=== PATIENT | male | born 1970 | race Caucasian/White ===

== ENCOUNTER 2021-02-02 10:14 | Observation (INO) | payer OTHER, SELFPAY ==
[2021-02-02] VITALS (9 sets, daily range): BP systolic 118–163; BP diastolic 82–110; PULSE 73–101; RESP 15–19; TEMP 36.5–36.9; O2SAT 92–98; BMI 35.9; BMI 37.3; BMI 37.1; BMI 37.2
--- NOTE | 2021-02-02 10:32 | ED.RN ---
PER DR. ALBA PT IS NOT A STROKE ALERT.
--- NOTE | 2021-02-02 10:35 | CT_ITS ---
STUDY: CT BRAIN WITHOUT CONTRAST REASON FOR EXAM: Male, 50 years old. Headache RADIATION DOSAGE (If Supplied By Facility): CTDIvol = ( 44.99 ) mGy, DLP = ( 846.73 ) mGycm TECHNIQUE: Transaxial CT imaging of the brain was performed without administration of intravenous contrast material. Individualized dose optimization techniques were used for this CT. COMPARISON: No relevant priors. FINDINGS: Normal soft tissue structures. Normal calvarium. Normal size ventricles and extra-axial spaces for the patient''s age. Normal white matter tracts of the cerebral hemispheres. Normal basal ganglia and thalami. Normal brainstem. Normal cerebellum. There is no intracranial hemorrhage. There are no findings of an acute ischemic infarction. Normal visualized paranasal sinuses. CT/Brain/Head without Contrast IMPRESSION: Normal unenhanced CT scan of the brain. Electronically Signed: Seb Staton MD at 12:02 EST Tel , Service support ,
--- NOTE | 2021-02-02 10:36 | EKG12_ITS ---
Test Reason : NEURO S\SX Blood Pressure : / mmHG Vent. Rate : 079 BPM Atrial Rate : 079 BPM P-R Int : 172 ms QRS Dur : 120 ms QT Int : 398 ms P-R-T Axes : 052 -30 010 degrees QTc Int : 456 ms Normal sinus rhythm Left axis deviation Right bundle branch block Abnormal ECG Confirmed by EARNESTINE GRAVES, ABILIO ([id number]), assistant editor ZAHIDA GALLO ([id number]) on 02/05/2021 10:35:36 A M Referred By: PARTH Confirmed By:CELIA COLBY MD
--- NOTE | 2021-02-02 10:38 | ED.DCSUM_ITS ---
- ER Visit Summary Date of Service: 02/02/21 Chief Complaint: Paresthesias and visual changes History of Present Illness: The patient is a 50 M who presents with paresthesias and visual changes that began yesterday after work. Patient states he had an area in his vision that look like after you look in a bright light for a long time then look away. Patient states this lasted several hours. Patient states she had an episode last night where he could not remember his child's name. Patient states he was having difficulty remembering other people's names as well. Patient patient states that today he was having some paresthesias in both lower extremities. Currently, the patient denies any visual changes. Patient states he was having some unsteadiness with ambulation because of the paresthesias in his legs. Patient denies any weakness. Patient does admit to a headache. Patient denies any nausea or vomiting. Physical Examination: Vital signs are stable except for an elevated blood pressure of 163/110. Patient is afebrile. Patient is in no acute distress. Oral mucosa is pink and moist. Neck is supple. Trachea is midline. There is no JVD noted. Heart was regular rate and rhythm. Lungs are clear and equal bilaterally. Abdomen is soft. Bowel sounds are normal. There is no tenderness. There is no rebound or guarding noted. Skin is warm dry. Cranial nerves II through XII are intact. There are no focal motor or sensory deficits noted. Extremities are intact. There is no calf tenderness or edema. Test Results: EKG was obtained. On my interpretation, there is normal sinus rhythm with a rate of 79. There is a right bundle branch block pattern noted. There are no acute ST or T wave changes. This was unchanged compared to previous EKG dated 09/23/2013. CT scan of the brain was obtained. There is no acute intracranial abnormality. This was interpreted by the radiologist and reviewed by myself. CBC, comprehensive metabolic profile, PT with INR, and PTT were obtained were all within normal limits. Troponin was normal. Emergency Department Course and Treatment: Since his symptoms started yesterday afternoon and his NIH score is 0 at this time, stroke team was not activated. TPA is not indicated. Patient was advised of her results. Case was discussed with the hospitalist. He will admit the patient for observation. Patient understood and was agreeable with the plan. All questions were answered. Disposition: Admit to hospital Impression: 1. TIA This note was generated with [employer] dictation software. It may contain incorrect words, spelling, and punctuation that were not noted in review of the chart prior to signing ED Disposition - Plan for ED Patient: Disposition: Acute Care Hospital [facility] Diagnosis: TIA (transient ischemic attack) Referrals: Rodrigo Cerad MD [Primary Care Provider] -
[2021-02-02 10:40] LABS: Bedside Glucose 105 mg/dL (70-110)
[2021-02-02 10:57] LABS: Absolute Lymphocyte Count 2.74 X10^3/uL (0.83-4.51); Basophil# 0.04 X10^3/uL; Basophil% 0.4 % (0-1); Eosinophil# 0.34 X10^3/uL; Eosinophils% 3.4 % (0-5); Hematocrit 46.7 % (40-54); Hemoglobin 16.2 g/dL (13.0-16.5); Lymphocyte # 2.74 X10^3/ul (4.0); Lymphocyte % 27.7 % (19-41); Mean Corp Hgb Conc 34.7 g/dL (32-36); Mean Corpuscular Hgb 29.3 pg (27.0-32.0); Mean Corpuscular Volume 84.4 fL (80-94); Mean Platelet Vol. 9.7 fl (6.2-12.0); Monocyte# 0.76 X10^3/uL; Monocyte% 7.7 % (0-10); NRBC Flagged by Analyzer 0 % (0-5); Neutrophil # 5.97 X10^3/uL (2.7-7.7); Neutrophil % 60.3 % (47-70); Platelet Count 220 K/mm3 (150-450); RBC Distribution Width CV 12.6 % (11.6-14.6); RBC Distribution Width SD 37.9 fl (35.1-43.9); Red Blood Count 5.53 M/mm3 (4.6-6.2); White Blood Count 9.9 K/mm3 (4.4-11.0)
[2021-02-02 11:00] LABS: Prothrombin Time (Protime)PT. 12.2 SECONDS (11.7-14.9)
[2021-02-02 11:01] LABS: Partial Thromboplast Time 24.3 Seconds (24.1-36.2)
[2021-02-02 11:09] LABS: AST(SGOT) 35 U/L (15-37); Alanine Aminotransfer ALT/SGPT 94 U/L (16-61); Albumin, Serum 3.9 g/dL (3.2-5.0); Alkaline Phosphatase 98 U/L (45-117); Anion Gap 7 (5-15); BUN 15 mg/dL (7-18); Calcium,Total 9.5 mg/dL (8.5-10.1); Chloride 102 mmol/L (98-107); EST Glomerular Filtration Rate 84 mL/min (>60); Est Glom Filt Rate - Afr Amer 102 mL/min (>60); Estimated Creatinine Clearance 92.26 ml/min; Globulin 3.9 g/dL (2.2-4.2); Glucose 100 mg/dL (74-106); Potassium 3.4 mmol/L (3.5-5.1); Protein, Total 7.8 g/dL (6.4-8.2); Sodium Level 140 mmol/L (136-145)
--- NOTE | 2021-02-02 12:38 | HP.PCM_ITS ---
Problem List (1) Essential (primary) hypertension Status: Acute (2) Dyslipidemia Status: Chronic (3) Asthma Status: Chronic Qualifiers: Asthma severity: mild Asthma persistence: intermittent (4) Allergic rhinitis Status: Chronic Qualifiers: Allergic rhinitis seasonality: unspecified (5) BMI 37.0-37.9, adult Status: Chronic History of Present Illness Date of Admission: 02/02/21 Chief Complaint: Visual disturbance The patient is a 50 year old M with past medical history single for dyslipidemia, essential hypertension who presented with visual disturbance. Patient symptoms started a day prior to coming in. Patient was at work when he noticed increasing blurry vision. He therefore decided to go home as a result. On his way home this visual disturbance also did persist. When he arrived at home he could not remember words. He had difficulty recalling the names of her daughters. He also did complain of numbness involving the left side of the face. Patient symptoms however did improve prior to him going to bed. He woke up on the morning of his presentation with recurrence of his numbness involving his face hence the decision to present to the emergency department. In the ED initial imaging studies obtained was negative acute CVA admitted to a monitored bed for subsequent evaluation and management. Past Medical History Past Medical History (Chronic Problems): Chronic Problems Dyslipidemia (Chronic) Asthma (Chronic) Allergic rhinitis (Chronic) BMI 37.0-37.9, adult (Chronic) Allergies niacin Allergy (Verified 09/23/13 09:08) Rash Home Medications: Ambulatory Orders Medication Instructions Recorded Albuterol Inhaler [Ventolin Hfa] 2 puff INHALATION Q4H PRN PRN 09/23/13 Azelastine HCl [Astelin] 2 spray NASAL BID 09/23/13 Budesonide Nasal [Rhinocort Aqua] 2 spray NASAL DAILY PRN PRN 09/23/13 Cetirizine HCl [Zyrtec] 10 mg PO DAILY PRN PRN 09/23/13 Fluticasone/Salmeterol [Advair 1 puff INHALATION BID 09/23/13 250/50 Mcg Diskus] Lorazepam [Ativan] 1 mg PO DAILY PRN PRN 09/23/13 Montelukast [Singulair] 10 mg PO DAILY 09/23/13 Simvastatin [Zocor] 10 mg PO QHS 09/23/13 Valsartan/Hydrochlorothiazide 1 tablet PO DAILY 09/23/13 [Diovan Hct 80-12.5 MG Tablet] Smoking Status: Never smoker - *Family History Paternal History Items: Cancer - from metastatic cancer Review of Systems Constitutional: Denies: Anorexia, Chills, Fever, Night Sweats, Weight Change HEENT: Denies: Head Aches, Sinus Congestion, Sinus Drainage Cardiovascular: Denies: Chest Pain, Orthopnea, Palpitations, Paroxysmal Noc. Dyspnea Respiratory: Denies: Cough, Shortness of breath at rest, Shortness of breath upon exertion, Sputum production Gastrointestinal: Denies: Abdominal Pain, Hematemesis, Hematochezia, Nausea, Melena, Vomiting Genitourinary: Denies: Dysuria, Frequency, Hematuria, Urgency Musculoskeletal: Denies: Joint Pain, Joint Tenderness Skin: Denies: Rash Neurological: Reports: Blurred vision, Numbness, Tingling Psychiatric: Denies: Homicidal Ideations, Suicidal Ideations Hematologic/ Lymphatic: Denies: Easy Bruising, Easy Bleeding VTE Information - Inpt Only VTE Present on Admission: No VTE Mechan Device Prophylaxis: None VTE Pharm Prophylaxis ordered?: Yes Patient Problems: Active and Suspected Problems TIA (transient ischemic attack) (Acute) Objective: GENERAL: cooperative HEENT: Atraumatic; EYES; Anicteric, Normal Conjunctiva NECK; supple, normal thyroid, RESPIRATORY: Diminished to auscultation CARDIOVASCULAR: Regular S1 S2, GI: soft, normoactive bowel sounds, : No Renal angle tenderness; EXTREMITIES: No edema, no clubbing, MUSCULOSKELETAL: no muscle waisting NEURO: Awake; no lateralizing signs. SKIN: No Rash PSYCH; Flat affect - Physical Exam Vitals/I&O's: Vital Signs Temp Pulse Resp BP Pulse Ox 97.9 F 88 15 153/102 H 95 02/02/21 10:16 02/02/21 10:28 02/02/21 10:28 02/02/21 10:28 02/02/21 10:28 Oxygen Delivery Method Room Air Weight: 118.2 kg Body Mass Index (BMI) 37.3 Finger Stick Blood Glucose 105 Laboratory Results 02/02/21 10:26: POC Glucose 105 02/02/21 10:40: WBC 9.9, RBC 5.53, Hgb 16.2, Hct 46.7, MCV 84.4, MCH 29.3, MCHC 34.7, RDW Std Deviation 37.9, RDW Coeff of Olimpia 12.6, Plt Count 220, MPV 9.7, Immature Gran % (Auto) 0.500, Neut % (Auto) 60.3, Lymph % (Auto) 27.7, [place] % (Auto) 7.7, Eos % (Auto) 3.4, Baso % (Auto) 0.4, Absolute Neuts (auto) 6.0, Absolute Lymphs (auto) 2.74, Nucleated RBC % 0 02/02/21 10:40: PT 12.2, INR 1.0, APTT 24.3 02/02/21 10:40: Sodium 140, Potassium 3.4 L, Chloride 102, Carbon Dioxide 31.0, Anion Gap 7, BUN 15, Creatinine 1.00, Estim Creat Clear Calc 92.26, Est GFR (MDRD) Af Amer 102, Est GFR (MDRD) Non-Af 84, BUN/Creatinine Ratio 15.0, Glucose 100, Calcium 9.5, Total Bilirubin 0.50, AST 35, ALT 94 H, Alkaline Phosphatase 98, Troponin I < 0.015, Total Protein 7.8, Albumin 3.9, Globulin 3.9, Albumin/Globulin Ratio 1.0 Assessment/Plan All Active Problems TIA (transient ischemic attack) (Acute) Essential (primary) hypertension (Acute) Patient is a 50-year-old gentleman presented with visual disturbance as well as difficulty with speech and facial paresthesias 1. Transient ischemic attack ?Patient presented with nonspecific multiple complaints including transient memory loss, difficulty with speech and aphasia paresthesias as well as blurry vision. Admitted to a monitored bed. Currently undergoing evaluation with every 4 neurochecks. As part of patient's evaluation ordered CT of the neck MRI of the head and neck and a 2D echo. Patient started on antiplatelet therapy with aspirin patient already on statin therapy did continue 2. Hypertension - Blood pressure controlled, home medications continued with dose adjustment as needed 3. Dyslipidemia -Patient is on statin therapy, continued at home dose 4. Mild intermittent asthma ?Patient is on Advair as well as albuterol as needed did continue 5. Allergic rhinitis ?Patient is on Singulair and Astelin nasal spray did continue 6. Obesity with BMI of 37.4 ?Weight loss advised 7. DVT prophylaxis ?Lovenox OBSV E&M: [id number] Initial observation care L3
--- NOTE | 2021-02-02 14:34 | ECHOCS_ITS ---
Reason For Study: TIA/CVA Procedure This was a 2D Doppler, Color Flow transthoracic echocardiogram. The study was technically difficult. Contrast injection was performed. Exam performed portable in patient room. Left Ventricle Normal LV size. The estimated ejection fraction is 65 %. No evidence for diastolic dysfunction. No regional wall motion abnormalities noted. Right Ventricle Normal RV size. Normal systolic function. Atria The left atrium is mildly enlarged. Normal right atrium. No doppler evidence for ASD. Mitral Valve There is no mitral valve stenosis. No mitral valve insufficiency. Tricuspid Valve There is no tricuspid stenosis. Trivial tricuspid valve insufficiency. Unable to estimate RV systolic pressure due to insufficient tricuspid regurgitant envelope. Aortic Valve Trisinus/trileaflet aortic valve. There is no aortic stenosis. No aortic valve insufficiency. Pulmonic Valve There is no pulmonic valvular stenosis. No pulmonic valve insufficiency. Great Vessels Normal aortic root. Pericardium/Pleural No pericardial effusion. Medication Diluted definity 4ml given slow IV push to enhance endocardial definition. No bubble study performed- MRI negative for stroke. MMode/2D Measurements & Calculations LVIDd: 4.2 cm IVSd: 1.1 cm Ao root diam: 3.6 cm LVIDs: 2.6 cm LVPWd: 1.2 cm RVDd: 4.1 cm FS: 37.8 % LAV(MOD-bp): 40.3 ml LVAd ap4: 35.3 cm2 SV(MOD-sp4): 87.5 ml LAV(MOD-bp) Indexed: 17.3 ml/m2 EDV(MOD-sp4): 117.4 ml LAV(MOD-sp2): 35.7 ml EDV(sp4-el): 120.6 ml LAV(MOD-sp4): 44.1 ml LVAs ap4: 16.2 cm2 ESV(MOD-sp4): 29.9 ml ESV(sp4-el): 30.5 ml EF(MOD-sp4): 74.6 % EF(sp4-el): 74.7 % SV(sp4-el): 90.0 ml LA A4 area: 17.7 cm2 LA dimension(2D): 5.2 cm RA A4 area: 13.4 cm2 Time Measurements MV dec time: 0.18 sec Doppler Measurements & Calculations MV E max juanito: 89.4 cm/sec Lat Peak E' Juanito: 10.1 cm/sec Med Peak E' Juanito: 6.8 cm/sec MV A max juanito: 76.4 cm/sec E/E' lat: 8.9 E/E' med: 13.2 MV E/A: 1.2 Ao V2 max: 142.9 cm/sec LV V1 max: 112.4 cm/sec TR max juanito: 226.7 cm/sec Ao max P.2 mmHg LV V1 max P.1 mmHg TR max P.6 mmHg Interpretation Summary The estimated ejection fraction is 65 %. No evidence for diastolic dysfunction. The left atrium is mildly enlarged. Contrast injection was performed. Ordering Physician: Ken Ibarra Referring Physician: Rodrigo Cerda M.D. Performed By: Laura Goss RDCS, RVT
--- NOTE | 2021-02-02 14:34 | CT_ITS ---
We are attempting to reach an attending provider to discuss findings. An addendum with communication details will be sent when the communication is complete. STUDY: CTA HEAD AND NECK WITH CONTRAST REASON FOR EXAM: Male, 50 years old. Neuro deficit, acute, stroke suspected RADIATION DOSAGE (If Supplied By Facility): CTDIvol = ( 18.56 ) mGy, DLP = ( 783.33 ) mGycm TECHNIQUE: CT angiography was performed with a multi-detector CT scanner. Data acquisition was obtained from the skull base through the vertex following intravenous administration of IV 100mL [id number]-[id number]. MIP images were reconstructed from the axial data set. Post-processing of the angiographic images was performed, with multiplanar reformation and 3D reconstruction. Individualized dose optimization techniques were used for this CT. COMPARISON: No relevant priors. FINDINGS: Normal bilateral petrous carotid arteries. Normal right cavernous carotid artery with a normal supraclinoid bifurcation. Normal left cavernous carotid artery with a normal supraclinoid bifurcation. Normal right A1 segments of the anterior cerebral artery. Normal left A1 segments of the anterior cerebral artery. Normal intact anterior communicating artery (ACOM). Normal bilateral A2 segments of the anterior cerebral arteries. Normal right M1 and M2 segments of the middle cerebral arteries, with a normal M1 bifurcation. Normal left M1 and M2 segments of the middle cerebral arteries, with a normal M1 bifurcation. There is a persistent origin of the right posterior cerebral artery with absence of the posterior communicating artery (PCOM). Normal left posterior communicating artery (PCOM). Normal bilateral vertebral arteries. Normal basilar artery with a normal basilar bifurcation. The visualized bilateral superior cerebellar (SCA) arteries are normal. Normal bilateral P1, P2 and visualized P3 segments of the posterior cerebral arteries. There is no demonstrated aneurysm of the hoh of [place]. There is no demonstrated abnormality of the visualized brain. AORTIC ARCH: Normal visualized aortic arch. Normal origins of the brachiocephalic, left common carotid, and left subclavian arteries. RIGHT CAROTID ARTERIES: Normal right common carotid artery (CCA). Normal right common carotid bulb. Normal origin of the right internal carotid (ICA) artery without a hemodynamically significant stenosis. Normal visualized cervical portion of the right internal carotid artery. Normal origin of the right external carotid artery (ECA). LEFT CAROTID ARTERIES: Normal left common carotid artery (CCA). Normal left common carotid bulb. Normal origin of the left internal carotid (ICA) artery without a hemodynamically significant stenosis. Normal visualized cervical portion of the left internal carotid artery. Normal origin of the left external carotid artery (ECA). VERTEBRAL ARTERIES: Normal bilateral vertebral arteries. CT/STROKE CTA Head AND Neck W/Con IMPRESSION: Normal CTA Head and neck with contrast. Electronically Signed: Seb Staton MD at 15:34 EST Tel , Service support ,
--- NOTE | 2021-02-02 14:34 | MRI_ITS ---
STUDY: MRI BRAIN WITHOUT CONTRAST REASON FOR EXAM: Male, 50 years old. cva TECHNIQUE: Standardized multiplanar fat and water weighted pulse sequences were obtained. COMPARISON: None. FINDINGS: Normal size of the ventricles and extra-axial spaces for the patient''s age. Normal white matter tracts of the supratentorial brain. Normal bilateral basal ganglia. Normal thalami. There is no extra-axial fluid accumulation. Normal flow voids within the major intracranial circulation suggesting patency by spin echo criteria. Normal sella turcica, pituitary gland, infundibular stalk, optic chiasm and hypothalamus. Normal tectal plate and pineal gland. Normal midbrain, ember and medulla. Normal cerebellum. Normal basal cisterns. Normal bilateral temporal bones. Normal bilateral internal auditory canals. No demonstrated orbital abnormality, within the constraints of a routine brain study. Normal visualized paranasal sinuses. Normal calvarium and skull base. Normal visualized soft tissue structures. Normal visualized upper cervical spine. MRI/Brain without Contrast IMPRESSION: Normal unenhanced MRI of the brain. Electronically Signed: Seb Staton MD at 16:07 EST Tel , Service support ,
[2021-02-02 15:31] LABS: AST(SGOT) 40 U/L (15-37); Alanine Aminotransfer ALT/SGPT 96 U/L (16-61); Albumin, Serum 3.8 g/dL (3.2-5.0); Alkaline Phosphatase 94 U/L (45-117); Bilirubin, Direct 0.11 mg/dL (0.00-0.30); Globulin 3.7 g/dL (2.2-4.2); Protein, Total 7.5 g/dL (6.4-8.2); Thyroid Stim Hormone (TSH) 1.71 uIU/mL (0.358-3.74)
[2021-02-02 17:08] LABS: Amphetamine Urine VISTA NEGATIVE (<1000 ng/mL); Barbiturate Urine VISTA NEGATIVE (< 200 ng/mL); Benzodiazepine Urine VISTA NEGATIVE (< 200 ng/mL); Cocaine Urine VISTA NEGATIVE (< 300 ng/mL); Ecstacy Urine VISTA NEGATIVE (< 500 ng/mL); Methadone Urine VISTA NEGATIVE (< 300 ng/mL); PCP Urine VISTA NEGATIVE (< 25 ng/mL); THC Urine VISTA NEGATIVE (< 50 ng/mL); Vista UDS pH Range 5
[2021-02-02] MEDS: Budesonide Respules 0.5 MG/2 ML AMPUL.NEB. INHALATION (20:06)
[2021-02-02] MEDS: Albuterol 2.5 MG/3 ML VIAL.NEB. INHALATION (20:06)
[2021-02-02] MEDS: Azelastine HCl NASAL.SRY 2 SPRAY NASAL (20:35)
[2021-02-02] MEDS: Atorvastatin Calcium 10 MG Tablet 5 MG PO (20:36)
[2021-02-02] MEDS: Losartan Potassium 50 MG Tablet PO (20:43)
[2021-02-03] VITALS (8 sets, daily range): BP systolic 110–155; BP diastolic 71–82; PULSE 60–89; RESP 16; TEMP 36.2–37.1; O2SAT 94–99
[2021-02-03 07:22] LABS: Absolute Lymphocyte Count 2.94 X10^3/uL (0.83-4.51); Absolute Neutrophil Count 6.2 X10^3/uL (2.0-7.7); Basophil# 0.04 X10^3/uL; Basophil% 0.4 % (0-1); Eosinophil# 0.34 X10^3/uL; Eosinophils% 3.3 % (0-5); Hematocrit 45.6 % (40-54); Lymphocyte # 2.94 X10^3/ul (4.0); Lymphocyte % 28.2 % (19-41); Mean Corp Hgb Conc 32.9 g/dL (32-36); Mean Corpuscular Hgb 28.5 pg (27.0-32.0); Mean Corpuscular Volume 86.5 fL (80-94); Mean Platelet Vol. 9.8 fl (6.2-12.0); Monocyte# 0.85 X10^3/uL; Monocyte% 8.1 % (0-10); NRBC Flagged by Analyzer 0 % (0-5); Neutrophil # 6.22 X10^3/uL (2.7-7.7); Neutrophil % 59.6 % (47-70); Platelet Count 241 K/mm3 (150-450); RBC Distribution Width CV 12.5 % (11.6-14.6); RBC Distribution Width SD 39.2 fl (35.1-43.9); Red Blood Count 5.27 M/mm3 (4.6-6.2); White Blood Count 10.4 K/mm3 (4.4-11.0)
[2021-02-03] MEDS: Albuterol 2.5 MG/3 ML VIAL.NEB. INHALATION (07:29)
[2021-02-03] MEDS: Budesonide Respules 0.5 MG/2 ML AMPUL.NEB. INHALATION (07:29)
[2021-02-03 07:44] LABS: Anion Gap 6 (5-15); BUN 14 mg/dL (7-18); BUN/Creat Ratio 13.9 RATIO (10-20); Calcium,Total 9.1 mg/dL (8.5-10.1); Chloride 102 mmol/L (98-107); Cholesterol 181 mg/dL (200); Creatinine, Serum 1.01 mg/dL (0.70-1.30); EST Glomerular Filtration Rate 83 mL/min (>60); Est Glom Filt Rate - Afr Amer 101 mL/min (>60); Estimated Creatinine Clearance 91.35 ml/min; Glucose 107 mg/dL (74-106); High Density Lipoprotein 30 mg/dL; Magnesium 2.2 mg/dL (1.6-2.6); Potassium 3.1 mmol/L (3.5-5.1); Sodium Level 138 mmol/L (136-145); Triglycerides 269 mg/dL; Very Low Density Lipoprotein 54 mg/dL (5-40)
[2021-02-03] MEDS: Aspirin 81 MG TAB.CHEW PO (08:56)
[2021-02-03] MEDS: Losartan Potassium 50 MG Tablet PO (08:56)
[2021-02-03] MEDS: hydroCHLOROthiazide 25 MG Tablet PO (08:56)
[2021-02-03] MEDS: Montelukast 10 MG Tablet PO (08:57)
[2021-02-03] MEDS: Potassium Chloride Oral Tablet 20 MEQ 40 MEQ PO (10:34)
--- NOTE | 2021-02-03 11:03 | CASEMGMT ---
As per RN pt was negative for stroke, so PHQ-9 not completed. DARÍO Hinkle
--- NOTE | 2021-02-03 11:11 | PCM.DC ---
- Discharge Diagnoses Current Active Problems: Current Active and Chronic Problems TIA (transient ischemic attack) (Acute) Essential (primary) hypertension (Acute) Dyslipidemia (Chronic) Asthma (Chronic) Allergic rhinitis (Chronic) BMI 37.0-37.9, adult (Chronic) You will use the following diet at home:: No restrictions Discharge Activity: Return to Normal Activity Allergies/Adverse Reactions: Allergies mold Allergy (Verified 02/02/21 14:37) upper resp. symptoms niacin Adverse Reaction (Verified 02/02/21 14:37) flushing sodium penothol Adverse Reaction (Uncoded 02/02/21 14:37) Upset Stomach Medications to take at Discharge Albuterol Inhaler [Ventolin Hfa] 2 puff INHALATION Q4H PRN PRN 09/23/13 Azelastine HCl [Astelin] 2 spray NASAL BID 09/23/13 Fluticasone/Salmeterol [Advair 250/50 Mcg Diskus] 1 puff INHALATION BID 09/23/13 B-Complex with Vitamin C [Super B with Vit C] 1 ea PO DAILY 02/02/21 Cetirizine HCl 10 mg PO DAILY 02/02/21 Losartan/Hydrochlorothiazide [Losartan-Hctz 50-12.5 mg Tab] 1 tab PO BID 02/02/21 Rhinocort Aqua 2 spray NASAL DAILY PRN PRN 02/02/21 Sertraline HCl 50 mg PO DAILY 02/02/21 Simvastatin 20 mg PO DAILY 02/02/21 Turmeric/Turmeric Root Extract [Turmeric 500 mg Capsule] 1 cap PO DAILY 02/02/21 Potassium Chloride Oral Tablet [K-Dur] 20 meq PO BIDCM #14 tab 02/03/21 The following prescriptions were given: Potassium Chloride Oral Tablet [K-Dur] 20 meq PO BIDCM #14 tab Transmission Status: Received by [facility]/pharmacy #[id number] Primary Care Physician: Rodrigo Cerda MD [Primary Care Provider] - Please follow up with your Primary Care Physician in: in 1-2 weeks Test Results: Test results from this visit will be discussed in further detail at your follow-up appointment, if applicable. Proposed Discharge Date: 02/03/21
--- NOTE | 2021-02-03 14:50 | DS.PCM_ITS ---
Discharge Date and Diagnosis - Problem List Patient Problems: Active and Suspected Problems TIA (transient ischemic attack) (Acute) Essential (primary) hypertension (Acute) Date of Admission: 02/02/21 Date of Discharge: 02/03/21 - Primary Discharge Diagnosis Acute Problems: Active Problems TIA (transient ischemic attack) (Acute) Essential (primary) hypertension (Acute) - Secondary Discharge Diagnosis Chronic Problems: Chronic Problems Dyslipidemia (Chronic) Asthma (Chronic) Allergic rhinitis (Chronic) BMI 37.0-37.9, adult (Chronic) Hospital Course and Treatment Imaging Results: Clinical Impression(s) from Imaging Studies Brain CT 02/02/21 10:35 IMPRESSION: Normal unenhanced CT scan of the brain. Brain MRI 02/02/21 14:34 IMPRESSION: Normal unenhanced MRI of the brain. Head/Neck CTA 02/02/21 14:34 IMPRESSION: Normal CTA Head and neck with contrast. 2D echo The estimated ejection fraction is 65 %. No evidence for diastolic dysfunction. The left atrium is mildly enlarged. Contrast injection was performed. Summary of Care Provided: Patient is a 50-year-old gentleman presented with visual disturbance as well as difficulty with speech and facial paresthesias 1. Transient ischemic attack ?Patient presented with nonspecific multiple complaints including transient memory loss, difficulty with speech and aphasia paresthesias as well as blurry vision. Admitted to a monitored bed. Currently undergoing evaluation with every 4 neurochecks. As part of patient's evaluation ordered CT of the neck MRI of the head and neck and a 2D echo. Patient started on antiplatelet therapy with aspirin patient already on statin therapy did continue -Patient had no recurrence of his symptoms. His evaluation including MRI CTA as well as 2D echo came back relatively unremarkable 2. Hypertension - Blood pressure controlled, home medications continued with dose adjustment as needed 3. Dyslipidemia -Patient is on statin therapy, continued at home dose 4. Mild intermittent asthma ?Patient is on Advair as well as albuterol as needed did continue 5. Allergic rhinitis ?Patient is on Singulair and Astelin nasal spray did continue 6. Obesity with BMI of 37.4 ?Weight loss advised 7. DVT prophylaxis ?Lovenox 8. Hypokalemia -corrected per protocol prescription written on discharge Patient Problems: Active and Suspected Problems TIA (transient ischemic attack) (Acute) Essential (primary) hypertension (Acute) - Physical Exam Vitals/I&O's: Vital Signs Temp Pulse Resp BP Pulse Ox 97.1 F L 89 16 110/71 96 02/03/21 10:00 02/03/21 10:00 02/03/21 10:00 02/03/21 10:00 02/03/21 10:00 Oxygen Delivery Method Room Air Weight: 117.48 kg Body Mass Index (BMI) 37.1 Finger Stick Blood Glucose 105 Intake and Output for Last 24 Hours 02/01/21 02/02/21 02/03/21 23:59 23:59 23:59 Intake Total 1000 / 1400 1300 / 1300 Balance 1000 / 1400 1300 / 1300 General: Alert HEENT: Atraumatic Cardiovascular: Regular rate, Regular Rhythm Neurological: Neuro grossly intact Laboratory Results 02/02/21 14:55: Total Bilirubin 0.40, Direct Bilirubin 0.11, AST 40 H, ALT 96 H, Alkaline Phosphatase 94, Troponin I < 0.015, Total Protein 7.5, Albumin 3.8, Globulin 3.7, TSH 1.71 02/02/21 14:55: Ethyl Alcohol 5.0 02/02/21 16:30: Urine Opiates Screen NEGATIVE, Urine Methadone Screen NEGATIVE, Ur Barbiturates Screen NEGATIVE, Ur Phencyclidine Scrn NEGATIVE, Ur Amphetamines Screen NEGATIVE, U Methamphetamin-MDMA NEGATIVE, U Benzodiazepines Scrn NEGATIVE, Urine Cocaine Screen NEGATIVE, U Cannabinoids Screen NEGATIVE, Ur Drug Screen Comment 02/02/21 17:54: Troponin I < 0.015 02/02/21 21:05: Troponin I < 0.015 02/03/21 06:38: WBC 10.4, RBC 5.27, Hgb 15.0, Hct 45.6, MCV 86.5, MCH 28.5, MCHC 32.9 D, RDW Std Deviation 39.2, RDW Coeff of Olimpia 12.5, Plt Count 241, MPV 9.8, Immature Gran % (Auto) 0.400, Neut % (Auto) 59.6, Lymph % (Auto) 28.2, [place] % (Auto) 8.1, Eos % (Auto) 3.3, Baso % (Auto) 0.4, Absolute Neuts (auto) 6.2, Absolute Lymphs (auto) 2.94, Nucleated RBC % 0 02/03/21 06:38: Sodium 138, Potassium 3.1 L, Chloride 102, Carbon Dioxide 30.0, Anion Gap 6, BUN 14, Creatinine 1.01, Estim Creat Clear Calc 91.35, Est GFR (MDRD) Af Amer 101, Est GFR (MDRD) Non-Af 83, BUN/Creatinine Ratio 13.9, Glucose 107 H, Calcium 9.1, Magnesium 2.2, Triglycerides 269 H, Cholesterol 181, LDL Cholesterol 97, VLDL Cholesterol 54 H, HDL Cholesterol 30 L Current Medications Acetaminophen (Acetaminophen 325 Mg Tablet) 650 mg PO Q6H PRN PRN PRN Reason: Pain Score 1-10/Temp > 100.7 F Al Hydroxide/Mg Hydroxide (Mag Hydrox/Al Hydrox/Simeth 30 Ml Udc) 30 ml PO Q6H PRN PRN PRN Reason: Gastric Burning Albuterol Sulfate (Albuterol 2.5 Mg/3 Ml Vial.Neb.) 2.5 mg INHALATION Q2H PRN PRN PRN Reason: SOB/Wheezing Albuterol Sulfate (Albuterol 2.5 Mg/3 Ml Vial.Neb.) 2.5 mg INHALATION Q6HWA.RT ON LICENSE OF [facility] Last Admin: 02/03/21 07:29 Dose: 2.5 mg Documented by: Aspirin (Aspirin 81 Mg Tab.Chew) 81 mg PO DAILY@0800 ON LICENSE OF [facility] Last Admin: 02/03/21 08:56 Dose: 81 mg Documented by: Atorvastatin Calcium (Atorvastatin Calcium 10 Mg Tablet) 5 mg PO QHS ON LICENSE OF [facility] Last Admin: 02/02/21 20:36 Dose: 5 mg Documented by: Azelastine HCl (Azelastine Hcl Nasal.Sry) 2 spray NASAL BID ON LICENSE OF [facility] Last Admin: 02/03/21 08:57 Dose: Not Given Documented by: Budesonide (Budesonide Respules 0.5 Mg/2 Ml Ampul.Neb.) 0.5 mg INHALATION Q12H.RT ON LICENSE OF [facility] Last Admin: 02/03/21 07:29 Dose: 0.5 mg Documented by: Enoxaparin Sodium (Enoxaparin 40 Mg/0.4 Ml Syringe) 40 mg SC DAILY ON LICENSE OF [facility] Last Admin: 02/03/21 08:57 Dose: Not Given Documented by: Fluticasone Propionate (Fluticasone 0.05% 1 [place] Nasal.Sry) 2 spray NASAL DAILY PRN PRN PRN Reason: ALLERGIES Guaifenesin (Guaifenesin 10 Ml Udc (200mg/10ml)) 20 ml PO Q4H PRN PRN PRN Reason: COUGH Hydralazine HCl (Hydralazine 20 Mg/Ml Vial) 5 mg IV Q30M PRN PRN Reason: to maintain BP goals Hydrochlorothiazide (Hydrochlorothiazide 25 Mg Tablet) 25 mg PO DAILY ON LICENSE OF [facility] Last Admin: 02/03/21 08:56 Dose: 25 mg Documented by: Labetalol HCl (Labetalol (Prefilled) 20 Mg/4 Ml) 10 - 20 mg IV Q10M PRN PRN PRN Reason: to Maintain BP Goals Loratadine (Loratadine 10 Mg Tablet) 10 mg PO DAILY PRN PRN PRN Reason: ALLERGIES Lorazepam (Lorazepam 1 Mg Tablet) 1 mg PO DAILY PRN PRN PRN Reason: ANXIETY Losartan Potassium (Losartan Potassium 50 Mg Tablet) 50 mg PO BID ON LICENSE OF [facility] Last Admin: 02/03/21 08:56 Dose: 50 mg Documented by: Magnesium Hydroxide (Magnesium Hydroxide 30 Ml Udc) 30 ml PO DAILY PRN PRN PRN Reason: Constipation Melatonin (Melatonin 3 Mg Tablet) 3 mg PO QHS PRN PRN PRN Reason: INSOMNIA Montelukast Sodium (Montelukast 10 Mg Tablet) 10 mg PO DAILY ON LICENSE OF [facility] Last Admin: 02/03/21 08:57 Dose: 10 mg Documented by: Nitroglycerin (Nitroglycerin (Inpatient Use) 0.4 Mg Tab.Subl) 0.4 mg SL Q5M PRN PRN Reason: CARDIAC/CHEST PAIN Ondansetron HCl (Ondansetron 4 Mg/2 Ml Vial) 4 mg IV Q8H PRN PRN PRN Reason: NAUSEA/VOMITING Oxycodone HCl (Oxycodone 5 Mg Tablet) 5 mg PO Q4H PRN PRN PRN Reason: Pain Score 4-10 Potassium Chloride (Potassium Chloride Oral Tablet 20 Meq) [facility] Sodium Chloride (0.9% Saline Lock 10 Ml Syringe) 10 - 40 ml IV UD PRN PRN Reason: SALINE FLUSH Discharge Diet: No Restrictions Discharge Activity: Return to Normal Activity Home Medications: Medications to take at Discharge Albuterol Inhaler [Ventolin Hfa] 2 puff INHALATION Q4H PRN PRN 09/23/13 Azelastine HCl [Astelin] 2 spray NASAL BID 09/23/13 Fluticasone/Salmeterol [Advair 250/50 Mcg Diskus] 1 puff INHALATION BID 09/23/13 B-Complex with Vitamin C [Super B with Vit C] 1 ea PO DAILY 02/02/21 Cetirizine HCl 10 mg PO DAILY 02/02/21 Losartan/Hydrochlorothiazide [Losartan-Hctz 50-12.5 mg Tab] 1 tab PO BID 02/02/21 Rhinocort Aqua 2 spray NASAL DAILY PRN PRN 02/02/21 Sertraline HCl 50 mg PO DAILY 02/02/21 Simvastatin 20 mg PO DAILY 02/02/21 Turmeric/Turmeric Root Extract [Turmeric 500 mg Capsule] 1 cap PO DAILY 02/02/21 Potassium Chloride Oral Tablet [K-Dur] 20 meq PO BIDCM #14 tab 02/03/21 Following Prescriptions Were Given to Patient: Potassium Chloride Oral Tablet [K-Dur] 20 meq PO BIDCM #14 tab Transmission Status: Received by [facility]/pharmacy #[id number] Primary Care Physician: Rodrigo Cerda MD [Primary Care Provider] - Please follow up with your Primary Care Physician in: in 1-2 weeks Disposition: Home Minutes spent on discharge:: 35 Patient Condition:: Stable Medical Necessity - Tobacco Use Smoking Status: Unknown if ever smoked Tobacco Use: Non-smoker Meaningful Use Info Meaningful Use Diagnoses (Choose all that apply): None applicable OBSV E&M: 82370 Observation care discharge
== END 2021-02-03 14:40 | disposition home or self-care (01) ==
LOC: ED 12:45 → PCU 13:18
PROVIDERS: Admitting Provider Internal Medicine; Emergency Provider Emergency Medicine; PCP Internal Medicine; Visit Provider Internal Medicine
DX: G45.9 Transient cerebral ischemic attack, unspecified (principal); I45.10 Unspecified right bundle-branch block; R94.31 Abnormal electrocardiogram [ECG] [EKG]; I10 Essential (primary) hypertension; Z79.899 Other long term (current) drug therapy; Z79.51 Long term (current) use of inhaled steroids; E78.5 Hyperlipidemia, unspecified; H53.8 Other visual disturbances; J45.20 Mild intermittent asthma, uncomplicated; E66.9 Obesity, unspecified; Z68.37 Body mass index [BMI] 37.0-37.9, adult; J30.9 Allergic rhinitis, unspecified; E87.6 Hypokalemia
CPT/HCPCS: 36415; 70450; 70496; 70498; 70551; 80048; 80053; 80061; 80076; 80307; 82077; 82962; 83735; 84443; 84484; 85025; 85610; 85730; 93005; 93306; 94640; 96365; 96366; 99218; 99285; Q9957; Q9967; A4216; C8929; G0378

== ENCOUNTER 2021-07-16 09:04 | Inpatient (IN) | payer OTHER, SELFPAY ==
[2021-07-16] VITALS (25 sets, daily range): BP systolic 97–167; BP diastolic 49–107; PULSE 70–90; RESP 12–35; TEMP 36.4–38.6; O2SAT 75–936; BMI 37.6; BMI 37.5
--- NOTE | 2021-07-16 09:53 | RAD_ITS ---
STUDY: X-RAY CHEST REASON FOR EXAM: Male, 51 years old. Cough TECHNIQUE: Single AP portable view of the chest. COMPARISON: None. FINDINGS: Elevation of the right hemidiaphragm. Diffuse bilateral patchy pulmonary infiltrates worse in the left lung. There is mild cardiac enlargement. Normal mediastinum and rei. Normal visualized pulmonary arteries. Normal visualized aortic arch and descending thoracic aorta. Normal visualized thoracic spine. Normal visualized ribs, clavicles, and shoulders. There is no demonstrated abnormality of the visualized soft tissue structures of the upper abdomen. RAD/Chest 1 View (Portable) IMPRESSION: Diffuse bilateral patchy pulmonary infiltrates worse in the left lung. Electronically Signed: Sukhi Mckee MD at 10:46 EDT , Service support ,
[2021-07-16] MEDS: dexAMETHasone 4 MG Tablet 6 MG PO (09:54)
[2021-07-16 10:03] LABS: Absolute Lymphocyte Count 0.62 X10^3/uL (0.83-4.51); Absolute Neutrophil Count 5.4 X10^3/uL (2.0-7.7); Basophil# 0.01 X10^3/uL; Basophil% 0.2 % (0-1); Hematocrit 38.8 % (40-54); Hemoglobin 13.3 g/dL (13.0-16.5); Lymphocyte # 0.62 X10^3/ul (0.83-4.51); Lymphocyte % 9.7 % (19-41); Mean Corp Hgb Conc 34.3 g/dL (32-36); Mean Corpuscular Hgb 28.8 pg (27.0-32.0); Monocyte# 0.31 X10^3/uL; Monocyte% 4.8 % (0-10); NRBC Flagged by Analyzer 0 % (0-5); Neutrophil # 5.44 X10^3/uL (2.7-7.7); Neutrophil % 84.7 % (47-70); Platelet Count 143 K/mm3 (150-450); RBC Distribution Width CV 12.7 % (11.6-14.6); RBC Distribution Width SD 38.4 fl (35.1-43.9); Red Blood Count 4.62 M/mm3 (4.6-6.2); White Blood Count 6.4 K/mm3 (4.4-11.0)
--- NOTE | 2021-07-16 10:05 | EDS_ITS ---
HPI History of Present Illness Chief Complaint: Shortness of Breath Narrative Narrative: Patient presents with weakness and shortness of breath. Symptoms started 1 week ago and 6 days ago he was diagnosed with Covid. He has increasing dyspnea, myalgias nausea. He has no neck pain or stiffness. He has no confusion. He has no chest pain. No abdominal pain. He is not vaccinated. PFSH PFSH Home Medications albuterol sulfate [Ventolin HFA] 2 puff INHALATION Q4H PRN PRN 09/23/13 [History Last Taken 1 Week Ago ~01/26/21] azelastine 2 spray NASAL BID 09/23/13 [History Last Taken 1 Week Ago ~01/26/21] fluticasone propion-salmeterol [Advair Diskus] 1 puff INHALATION BID 09/23/13 [History Last Taken 1 Week Ago ~01/26/21] B-complex with vitamin C 1 ea PO DAILY 02/02/21 [History Last Taken 02/02/21] Rhinocort Aqua 2 spray NASAL DAILY PRN PRN 02/02/21 [History Last Taken 1 Week Ago ~01/26/21] cetirizine 10 mg PO DAILY 02/02/21 [History Last Taken 02/02/21] losartan-hydrochlorothiazide 1 tab PO DAILY 02/02/21 [History Last Taken 02/01/21] sertraline 50 mg PO DAILY 02/02/21 [History Last Taken 02/02/21] simvastatin 20 mg PO DAILY 02/02/21 [History Last Taken 02/02/21] turmeric-turmeric root extract 1 cap PO DAILY 02/02/21 [History Last Taken 02/02/21] potassium chloride 20 meq PO BIDCM #14 tab 02/03/21 [Rx Last Taken Unknown] Allergy/AdvReac Type Severity Reaction Status Date / Time mold Allergy upper Verified 02/02/21 14:37 resp. symptoms codeine AdvReac Upset Verified 07/16/21 09:15 Stomach niacin AdvReac flushing Verified 02/02/21 14:37 sodium penothol AdvReac Upset Uncoded 02/02/21 14:37 Stomach Social History Smoking Status: Never smoker ROS ROS ED ROS Narrative Past medical history: Reviewed, includes TIA, hypertension, hyperlipidemia, asthma. Medications: Reviewed Social history: Noncontributory Review of systems: All systems negative except as indicated General: Generalized weakness, no fevers Eyes: No visual changes ENT: Some slight upper airway congestion. Normal voice. Neck: No neck pain Cardiovascular: No chest pain Respiratory: Shortness of breath as in HPI Gastrointestinal: No abdominal pain. There is some nausea without any vomiting. Genitourinary: No dysuria Musculoskeletal: Generalized myalgias Skin: No rash Neurological: No memory loss, confusion or any focal weakness Psych: No recent behavioral changes Hematologic: No easy bleeding or easy bruising EXAM Physical Exam Narrative Exam Narrative: Physical exam General: Patient appears uncomfortable, he does not appear toxic. Head: Normocephalic, Atraumatic Eyes: Conjunctiva not pale ENT: Moist mucous membranes, no current signs of dehydration some upper airway congestion. Neck: Supple, Nontender, No lymphadenopathy Cardiovascular: Regular rate, Regular rhythm Respiratory: Slightly tachypneic, no obvious wheezing. Abdomen: Soft, Nontender, Nondistended Back: Nontender, Normal Inspection. Negative for: CVA tenderness Extremities: Nontender, No edema Skin: Normal color, No rash Neurological: Alert, Normal Strength, Normal Sensation Psychological: Normal affect Const Vital Signs: 07/16/21 09:06 07/16/21 09:10 07/16/21 10:37 Temperature 97.6 F L 97.6 F L 101.4 F H Temperature Source Temporal Temporal Oral Pulse Rate 81 81 82 Respiratory Rate 35 H 26 H 16 Respiratory Effort Short of Breath Respiratory Depth Deep Respiratory Pattern Hyperpnea Blood Pressure 135/79 H 135/79 H 124/73 H Blood Pressure Mean 97 97 90 Pulse Ox 75 93 90 Oxygen Delivery Method Room Air Room Air Nasal Cannula Oxygen Flow Rate (L/min) 5 6 MDM MDM MDM Narrative Medical decision making narrative: Patient is found to have bilateral pneumonia, this is consistent with COVID-19, he has needed a few different incremental increases in his oxygenation requirements therefore I will admit him to the intensive care unit. He understands he is quite ill. Lab Data Labs: Laboratory Results - last 24 hr 07/16/21 07/16/21 07/16/21 09:17 09:17 09:17 WBC 6.4 RBC 4.62 Hgb 13.3 Hct 38.8 L MCV 84.0 MCH 28.8 MCHC 34.3 RDW Std Deviation 38.4 RDW Coeff of Olimpia 12.7 Plt Count 143 L MPV 10.0 Immature Gran % (Auto) 0.600 Neut % (Auto) 84.7 H Lymph % (Auto) 9.7 L [place] % (Auto) 4.8 Eos % (Auto) 0.0 Baso % (Auto) 0.2 Absolute Neuts (auto) 5.4 Absolute Lymphs (auto) 0.62 L Nucleated RBC % 0 Fibrinogen Sodium 134 L Potassium 3.1 L Chloride 97 L Carbon Dioxide 33.0 H Anion Gap 4 L BUN 17 Creatinine 0.91 Estim Creat Clear Calc 100.27 Est GFR (MDRD) Af Amer 113 Est GFR (MDRD) Non-Af 93 BUN/Creatinine Ratio 18.6 Glucose 115 H Lactic Acid 1.6 Calcium 8.4 L Total Bilirubin 0.60 AST 56 H ALT 65 H Alkaline Phosphatase 62 C-React Prot Ext Range 56.40 H Total Protein 6.7 Albumin 3.2 Globulin 3.5 Albumin/Globulin Ratio 0.9 07/16/21 09:52 WBC RBC Hgb Hct MCV MCH MCHC RDW Std Deviation RDW Coeff of Olimpia Plt Count MPV Immature Gran % (Auto) Neut % (Auto) Lymph % (Auto) [place] % (Auto) Eos % (Auto) Baso % (Auto) Absolute Neuts (auto) Absolute Lymphs (auto) Nucleated RBC % Fibrinogen 427 Sodium Potassium Chloride Carbon Dioxide Anion Gap BUN Creatinine Estim Creat Clear Calc Est GFR (MDRD) Af Amer Est GFR (MDRD) Non-Af BUN/Creatinine Ratio Glucose Lactic Acid Calcium Total Bilirubin AST ALT Alkaline Phosphatase C-React Prot Ext Range Total Protein Albumin Globulin Albumin/Globulin Ratio Radiography Diagnostic Testing: Radiology Impression Chest X-Ray 07/16/21 09:53 IMPRESSION: Diffuse bilateral patchy pulmonary infiltrates worse in the left lung. Electronically Signed: Sukhi Mckee MD at 10:46 EDT , Service support , X-ray read by me and the radiologist reveals bilateral pulmonary infiltrates consistent with COVID-19. Critical Care Time Critical Care Time: Yes Critical care time (excluding procedures): 30-74 minutes and - (Critical care time is 35 minutes. This includes time spent with patient, documentation, time spent with consultants.) Discharge Plan Triage Chief Complaint: Shortness of Breath ED Provider: Graham Guadalupe Dx/Rx/DC Orders Clinical Impression: Hypoxia, COVID-19 Prescriptions: No Action fluticasone propion-salmeterol [Advair Diskus] 1 PUFF inhaler 1 puff inhalation BID RF: 0 azelastine 1 SPRAY aerosol,spray 2 spray NASAL BID RF: 0 albuterol sulfate [Ventolin HFA] 1 INHALER inhaler 2 puff inhalation Q4H PRN PRN (Reason: Allergies) RF: 0 cetirizine 10 MG tablet 10 mg PO DAILY RF: 0 simvastatin 20 MG tablet 20 mg PO DAILY RF: 0 losartan-hydrochlorothiazide 1 EACH tablet 1 tab PO DAILY RF: 0 sertraline 50 MG tablet 50 mg PO DAILY RF: 0 B-complex with vitamin C 1 EACH capsule 1 ea PO DAILY RF: 0 turmeric-turmeric root extract 1 EACH capsule 1 cap PO DAILY RF: 0 Rhinocort Aqua 2 spray NASAL DAILY PRN PRN (Reason: Allergies) RF: 0 potassium chloride 20 MEQ tablet 20 meq PO BIDCM Qty: 14 RF: 0 Primary Care Provider: Rodrigo Cerda Referrals: Rodrigo Cerda MD [Primary Care Provider] -
[2021-07-16 10:13] LABS: Lactic Acid 1.6 mmol/L (0.4-1.9)
[2021-07-16 10:13] LABS: Fibrinogen 427 mg/dl (203-444)
[2021-07-16 10:14] LABS: ALB/GLOB Ratio 0.9 RATIO (0.9-2.4); AST(SGOT) 56 U/L (15-37); Alanine Aminotransfer ALT/SGPT 65 U/L (16-61); Albumin, Serum 3.2 g/dL (3.2-5.0); Alkaline Phosphatase 62 U/L (45-117); Anion Gap 4 (5-15); BUN 17 mg/dL (7-18); BUN/Creat Ratio 18.6 RATIO (10-20); Calcium,Total 8.4 mg/dL (8.5-10.1); Chloride 97 mmol/L (98-107); Creatinine, Serum 0.91 mg/dL (0.70-1.30); EST Glomerular Filtration Rate 93 mL/min (>60); Est Glom Filt Rate - Afr Amer 113 mL/min (>60); Estimated Creatinine Clearance 100.27 ml/min; Globulin 3.5 g/dL (2.2-4.2); Glucose 115 mg/dL (74-106); Potassium 3.1 mmol/L (3.5-5.1); Protein, Total 6.7 g/dL (6.4-8.2); Sodium Level 134 mmol/L (136-145)
[2021-07-16] MEDS: Ondansetron 4 MG/2 ML Vial IV ×2 (10:36→22:56)
[2021-07-16] MEDS: Acetaminophen 500 MG Tablet 1000 MG PO (10:53)
--- NOTE | 2021-07-16 13:11 | HP.PCM.HOS_ITS ---
HPI - General General Date of Admission: 07/16/21 HPI Narrative KAYODE HUTCHINS, is a 51 M who presented [facility] [place] on 07/16/2021 with a chief complaint of shortness of breath. He reports that he started having some weakness, shortness of breath, mild cough, and nausea that started on Friday evening of last week. He was tested for Covid on Friday and had a positive result. He states his is also ill. He has not been vaccinated. His T-max in the emergency department was 100.4, his blood pressure was stable, he was tachypneic and had an oxygen saturation of 75% on room air and required up titration to 6 L nasal cannula to obtain an oxygen saturation greater than 92%. Decadron was initiated the emergency department. His CBC was fairly unremarkable other than mild thrombocytopenia with a platelet count of 143. His BMP showed mild hyponatremia with a sodium of 134, hypokalemia with potassium of 3.4 and an elevated serum bicarb of 33. His kidney function was normal. He had mildly elevated transaminases with an AST of 56 and ALT of 65. His CRP was ruben vated a D-dimer was obtained and was 0.50. He was admitted to the ICU for continued care. [facility] Medical History (Updated 07/16/21 @ 13:[address] Anat Posada DO) SEVERO (obstructive sleep apnea) Home Medications albuterol sulfate [Ventolin HFA] 2 puff INHALATION Q4H PRN PRN 09/23/13 [History Last Taken 1 Week Ago ~01/26/21] azelastine 2 spray NASAL BID 09/23/13 [History Last Taken 1 Week Ago ~01/26/21] fluticasone propion-salmeterol [Advair Diskus] 1 puff INHALATION BID 09/23/13 [History Last Taken 1 Week Ago ~01/26/21] B-complex with vitamin C 1 ea PO DAILY 02/02/21 [History Last Taken 02/02/21] Rhinocort Aqua 2 spray NASAL DAILY PRN PRN 02/02/21 [History Last Taken 1 Week Ago ~01/26/21] cetirizine 10 mg PO DAILY 02/02/21 [History Last Taken 02/02/21] losartan-hydrochlorothiazide 1 tab PO DAILY 02/02/21 [History Last Taken 02/01/21] sertraline 50 mg PO DAILY 02/02/21 [History Last Taken 02/02/21] simvastatin 20 mg PO DAILY 02/02/21 [History Last Taken 02/02/21] turmeric-turmeric root extract 1 cap PO DAILY 02/02/21 [History Last Taken 02/02/21] potassium chloride 20 meq PO BIDCM #14 tab 02/03/21 [Rx Last Taken Unknown] Allergy/AdvReac Type Severity Reaction Status Date / Time mold Allergy upper Verified 02/02/21 14:37 resp. symptoms codeine AdvReac Upset Verified 07/16/21 09:15 Stomach niacin AdvReac flushing Verified 02/02/21 14:37 sodium penothol AdvReac Upset Uncoded 02/02/21 14:37 Stomach Social History Smoking Status: Never smoker ROS Constitutional Constitutional: Reports fatigue, malaise and weakness; Denies anorexia, change in weight, chills, fever(s), night sweats or other Eyes Eyes: Denies blurry vision, change in eye color, change in vision, discharge from eye(s), double vision, erythema, eye pain, loss of vision or other ENT HEENT: Denies abnormal hearing, dysphagia, ear pain, epistaxis, headache(s), hearing loss, nasal congestion, nasal discharge, post nasal drip, sinus pressure, sore throat or other Cardiovascular Cardiovascular: Reports dyspnea on exertion and rapid heart rate; Denies chest pain, claudication, edema, lightheadedness, orthopnea, palpitations, paroxysmal nocturnal dyspnea, syncope or other Respiratory/Chest Respiratory/Chest: Reports cough, dyspnea, shortness of breath at rest and shortness of breath with exertion; Denies excessive phlegm production, hemoptysis, productive cough, wheezing or other Gastrointestinal Gastrointestinal: Reports nausea; Denies abdominal pain, coffee ground emesis, constipation, diarrhea, dyspepsia, hematemesis, hematochezia, loose stools, melena, vomiting or other Genitourinary Genitourinary: Denies burning urination, difficulty urinating, dysuria, hematuria, nocturia, urinary frequency, urinary hesitancy, urinary incontinence, urinary urgency or other Musculoskeletal Musculoskeletal: Reports arthralgias and myalgias; Denies back pain, joint pain, joint stiffness, joint swelling, neck pain or other Neurologic Neurologic: Denies abnormal gait, abnormal speech, confusion, disequilibrium, dizziness, focal weakness, headache(s), numbness, paresthesias, seizure-like activity, seizures, syncope, tingling, tremor(s) or other Psychiatric Psychiatric: Denies anxiety, depression, homicidal ideation, suicidal ideation or other Endocrine Endocrinology: Denies change in body appearance, cold intolerance, excessive sweating, heat intolerance, polydipsia, polyuria or other Hematologic/Lymphatic Hematologic/Lymphatic: Denies anemia, easy bleeding, easy bruising, lymphadenopathy or other Allergic/Immunologic Allergic/Immunologic: Denies rhinitis, hives, eczemia, asthma or other Vital Signs Vital Signs Vital Signs: 07/16/21 09:06 07/16/21 09:10 07/16/21 10:37 Temperature 97.6 F L 97.6 F L 101.4 F H Temperature Source Temporal Temporal Oral Pulse Rate 81 81 82 Respiratory Rate 35 H 26 H 16 Respiratory Effort Short of Breath Respiratory Depth Deep Respiratory Pattern Hyperpnea Blood Pressure 135/79 H 135/79 H 124/73 H Blood Pressure Mean 97 97 90 Pulse Ox 75 93 90 Oxygen Delivery Method Room Air Room Air Nasal Cannula Oxygen Flow Rate (L/min) 5 6 07/16/21 11:42 07/16/21 11:51 Temperature 100.9 F H Temperature Source Oral Pulse Rate 81 86 Respiratory Rate 21 H 12 Respiratory Effort Respiratory Depth Respiratory Pattern Blood Pressure 138/83 H 138/83 H Blood Pressure Mean 101 101 Pulse Ox 92 936 Oxygen Delivery Method Nasal Cannula Nasal Cannula Oxygen Flow Rate (L/min) 6 6 Weight Weight: 119.068 kg Body Mass Index (BMI) 37.6 Physical Exam Const alert, oriented x3 and no apparent distress Constitutional Narrative: Obese white male sitting up in bed, on supplemental oxygen, mild tachypnea, appears comfortable General Appearance: cooperative HEENT normocephalic, head/scalp atraumatic, hearing grossly normal bilaterally, moist oral mucous membranes and oropharynx normal HEENT Narrative: Mallampati 3 Mouth: oral and palatal mucosa normal Eyes PERRL, EOMs intact bilaterally and conjunctivae normal Neck no lymphadenopathy, supple, no JVD and no carotid bruits Neck Narrative: Short thick neck Resp no retractions and no use of accessory muscles Resp Narrative: Diffusely diminished but clear, mild tachypnea Auscultation: Negative for crackles, rales, rhonchi or wheezes Cardio regular rate, regular rhythm, S1 normal heart sound, S2 normal heart sound, no murmurs, no rub, no gallops, no clicks and no JVD GI normal to inspection, nondistended, normoactive bowel sounds, soft to palpation, non-tender and non-distended Extremity normal to inspection, full ROM and no clubbing, cyanosis or edema Peripheral Pulses: Yes pulses 2+ throughout Skin no rashes or lesions noted, no wounds, skin turgor normal, no jaundice, no petechiae and no mottling Neuro oriented x3, CN's II-XII intact bilaterally, moves all extremities and no focal motor deficits Sensorium / Orientation: awake, alert, oriented to person, oriented to place and oriented to time Motor Exam: strength 5/5 throughout Psych affect normal Results Lab / Micro Data Result Diagrams: 07/16/21 09:17 07/16/21 09:17 Labs: Laboratory Results - last 24 hr 07/16/21 09:17: WBC 6.4, RBC 4.62, Hgb 13.3, Hct 38.8 L, MCV 84.0, MCH 28.8, MCHC 34.3, RDW Std Deviation 38.4, RDW Coeff of Olimpia 12.7, Plt Count 143 L, MPV 10.0, Immature Gran % (Auto) 0.600, Neut % (Auto) 84.7 H, Lymph % (Auto) 9.7 L, [place] % (Auto) 4.8, Eos % (Auto) 0.0, Baso % (Auto) 0.2, Absolute Neuts (auto) 5.4, Absolute Lymphs (auto) 0.62 L, Nucleated RBC % 0 07/16/21 09:17: Sodium 134 L, Potassium 3.1 L, Chloride 97 L, Carbon Dioxide 33.0 H, Anion Gap 4 L, BUN 17, Creatinine 0.91, Estim Creat Clear Calc 100.27, Est GFR (MDRD) Af Amer 113, Est GFR (MDRD) Non-Af 93, BUN/Creatinine Ratio 18.6, Glucose 115 H, Calcium 8.4 L, Total Bilirubin 0.60, AST 56 H, ALT 65 H, Alkaline Phosphatase 62, C-React Prot Ext Range 56.40 H, Total Protein 6.7, Albumin 3.2, Globulin 3.5, Albumin/Globulin Ratio 0.9 07/16/21 09:17: Lactic Acid 1.6 07/16/21 09:52: Fibrinogen 427 07/16/21 09:52: D-Dimer Quant (PE/DVT) 0.50 H Radiology Impression Chest X-Ray 07/16/21 09:53 IMPRESSION: Diffuse bilateral patchy pulmonary infiltrates worse in the left lung. Electronically Signed: Sukhi Mckee MD at 10:46 EDT , Service support , Assessment & Plan Assessment/Plan (1) Acute respiratory failure with hypoxia: (2) Obesity: (3) COVID-19: (4) Thrombocytopenia: (5) Transaminitis: (6) Hypokalemia: (7) Hyponatremia: PLAN: Acute hypoxic respiratory failure secondary to COVID-19 pneumonia -High suspicion secondary to comorbidities for further decline with regards to oxygenation -Continue 6 L nasal cannula and titrate to keep sats greater than 92% -Decadron 6 mg initiated in the emergency department day 1 of 10 -Remdesivir day 1 of 5 -Lovenox 40 mg twice daily -Consult ICU/pulmonology if patient declines Hypokalemia -Oral replacement -Repeat in a.m. -Check magnesium level in a.m. Thrombocytopenia -Suspect related to acute Covid infection -Repeat in a.m. Transaminitis -Continue to monitor -Suspect related to acute Covid infection Hyponatremia -Mild -Likely related to acute coinfection -Continue to monitor Obesity -BMI 37.7 -Complicates overall treatment, prognosis, and outcomes -Recommend weight loss HTN/HPL -Continue losartan/hydrochlorothiazide -Continue simvastatin History of asthma -Continue home inhalers DVT prophylaxis -Lovenox 40 mg twice daily CODE STATUS -Full code as per discussion had with the patient the emergency department on admission Charges/Coding Visit Charges Inpatient E&M: 44873 Init Hosp L3
[2021-07-16] MEDS: 0.9% Saline Lock 10 ML Syringe IV (14:36)
[2021-07-16 17:41] LABS: Bedside Glucose 150 mg/dL (70-110)
[2021-07-16] MEDS: Budesonide Respules 0.5 MG/2 ML AMPUL.NEB. INHALATION (19:00)
[2021-07-16] MEDS: Albuterol 2.5 MG/3 ML VIAL.NEB. INHALATION (19:00)
--- NOTE | 2021-07-16 21:43 | PCS.PANDOC ---
PANDEMIC DOCUMENTATION INITIATED: Date: 07/09/2021 Time: 190
--- NOTE | 2021-07-16 21:49 | NURSING ---
This RN assuming care. Patient sitting at edge of bed in no distress. currently wearing home CPAP with 10 L bleed in. pulse ox 93 %, lungs diminished.
[2021-07-16] MEDS: Enoxaparin 40 MG/0.4 ML Syringe SC (22:16)
[2021-07-16 22:21] LABS: Bedside Glucose 132 mg/dL (70-110)
[2021-07-16] MEDS: Azelastine HCl NASAL.SRY 2 SPRAY NASAL (22:54)
[2021-07-16] MEDS: Senna/Docusate Sodium 1 Tablet 2 TABLET PO (22:55)
--- NOTE | 2021-07-16 23:15 | NURSING ---
pt up to bsc to attempt BM. completed bath with assist, tolerated activity fairly well, pulse ox maintained > 90%, sob noted but resolved with rest. complaint of nausea, zofran given
[2021-07-17] VITALS (36 sets, daily range): BP systolic 99–156; BP diastolic 54–124; PULSE 66–90; RESP 12–42; TEMP 36–37.1; O2SAT 83–99
[2021-07-17 04:06] LABS: Absolute Neutrophil Count 6.5 X10^3/uL (2.0-7.7); Basophil# 0.01 X10^3/uL; Basophil% 0.1 % (0-1); Hematocrit 38.8 % (40-54); Lymphocyte % 14.6 % (19-41); Mean Corp Hgb Conc 33.5 g/dL (32-36); Mean Corpuscular Hgb 28.3 pg (27.0-32.0); Mean Corpuscular Volume 84.5 fL (80-94); Mean Platelet Vol. 10.1 fl (6.2-12.0); Monocyte# 0.44 X10^3/uL; Monocyte% 5.4 % (0-10); NRBC Flagged by Analyzer 0 % (0-5); Neutrophil # 6.51 X10^3/uL (2.7-7.7); Neutrophil % 79.4 % (47-70); Platelet Count 164 K/mm3 (150-450); RBC Distribution Width CV 12.9 % (11.6-14.6); RBC Distribution Width SD 39.9 fl (35.1-43.9); Red Blood Count 4.59 M/mm3 (4.6-6.2); White Blood Count 8.2 K/mm3 (4.4-11.0)
--- NOTE | 2021-07-17 04:07 | NURSING ---
pt resting quietly until approx 0345, then began coughing and desating. home cpap remains on, o2 bleed in increased to 15l. sats remain in mid to high 80's. pt complaint of nausea from the thick brown sputum he is coughing up. RT here to apply bipap
[2021-07-17] MEDS: proCHLORPERazine 10 MG/2 ML Vial 5 MG IM (04:13)
[2021-07-17 04:21] LABS: Bedside Glucose 129 mg/dL (70-110)
[2021-07-17 04:28] LABS: ALB/GLOB Ratio 0.8 RATIO (0.9-2.4); AST(SGOT) 66 U/L (15-37); Alanine Aminotransfer ALT/SGPT 70 U/L (16-61); Albumin, Serum 2.9 g/dL (3.2-5.0); Alkaline Phosphatase 56 U/L (45-117); Anion Gap 8 (5-15); BUN 20 mg/dL (7-18); BUN/Creat Ratio 20.5 RATIO (10-20); Chloride 96 mmol/L (98-107); Creatinine, Serum 0.98 mg/dL (0.70-1.30); EST Glomerular Filtration Rate 86 mL/min (>60); Est Glom Filt Rate - Afr Amer 105 mL/min (>60); Estimated Creatinine Clearance 93.11 ml/min; Globulin 3.5 g/dL (2.2-4.2); Glucose 109 mg/dL (74-106); Potassium 3.2 mmol/L (3.5-5.1); Protein, Total 6.4 g/dL (6.4-8.2); Sodium Level 136 mmol/L (136-145); Thyroid Stim Hormone (TSH) 0.62 uIU/mL (0.358-3.74)
--- NOTE | 2021-07-17 04:37 | NURSING ---
pt resting quietly on bipap. pulse ox 95%
[2021-07-17] MEDS: Budesonide Respules 0.5 MG/2 ML AMPUL.NEB. INHALATION (07:17)
[2021-07-17] MEDS: Albuterol 2.5 MG/3 ML VIAL.NEB. INHALATION ×3 (07:18→19:05)
--- NOTE | 2021-07-17 07:39 | CON.PCM.CC_ITS ---
Assessment & Plan Assessment/Plan (1) Acute respiratory failure with hypoxia: (2) COVID-19: PLAN: RECOMMENDATIONS: 1. Continue patient on AVAPS and wean FiO2 to maintain saturations at or above 90%. 2. Continue Decadron to complete 10-day treatment course. 3. Continue Lovenox twice daily. 4. Electrolyte repletion. 5. Patient to remain n.p.o. for now. IMPRESSIONS: 1. Acute hypoxemic respiratory failure secondary to COVID-19 pneumonia The patient is an unvaccinated male who presented to the hospital with 1 week of progressive dyspnea in the setting of a positive test for COVID-19. Chest x-ray findings are consistent with COVID-19 pneumonia. The patient has been started on appropriate medical therapy with remdesivir and Decadron, which will be continued. Unfortunately, the patient's respiratory status has continued to d ecline and he is now requiring continuous noninvasive positive pressure ventilatory support with a high FiO2 requirement. Plan to continue current supportive measures. The patient will be maintained n.p.o. status for now. If the patient tolerates Pap therapy this morning, attempt can be made to t ransition him to Airvo heated high flow. The patient is a increased risk for the possible need for intubation in the near future. 2. Hypokalemia Electrolyte repletion as indicated. Recheck levels in the morning. 3. Obesity/questionable history of asthma/hypertension/hyperlipidemia/history of obstructive sleep apnea Complicates care, management, recovery and prognosis. Continue home medications as indicated. TIME: 40 minutes of critical care time, independent of procedures, was spent addressing the patient's acute hypoxemic respiratory failure secondary to COVID- 19 pneumonia, review of all data and collaboration with the care team. ([id number]) HPI Consult Data Date of Consult: 07/17/21 HPI Narrative Reason for Consultation: Acute hypoxemic respiratory failure secondary to COVID- 19 pneumonia HPI Narrative: The patient is a 51-year-old male, with a history as outlined below, who presented to the emergency department on July 16 with progressive dyspnea. The patient also reported associated cough and nausea, with symptoms that initially began 1 week ago. The patient is unvaccinated. He was tested for COVID-19 last week and found to be positive. He does have a history of obstructive sleep apnea and utilizes nocturnal CPAP therapy at his baseline. On presentation to the emergency department, the patient was noted to be afebrile and hemodynamically stable. He was, nevertheless, tachypneic and hypoxemic. Initial laboratory evaluation revealed a normal white blood cell count. Platelet count was low at 143,000. D-dimer was noted to be 0.50. Chemistry profile was notable for a sodium of 134, potassium of 3.1, bicarb carbonate of 33, chloride of 97 and normal creatinine. Lactate was within normal limits. AST and ALT were mildly increased. Chest x-ray demonstrated bilateral airspace disease, worse throughout the left lung. The patient was subsequently started on supplemental oxygen, remdesivir and Decadron. He was admitted to the medical intensive care unit for further management. Over the course of the last 12 hours, the patient has continued to decompensate from a respiratory perspective and is now requiring continuous noninvasive positive pressure ventilatory support. He is currently being maintained on AVAPS with an FiO2 requirement of 85%. The patient remains tachypneic. He is currently documented to be overall net -750 mL for the hospital admission. [facility] Medical History (Updated 07/16/21 @ 13:[address] Anat Posada, ) SEVERO (obstructive sleep apnea) Home Medications albuterol sulfate [Ventolin HFA] 2 puff INHALATION Q4H PRN PRN 09/23/13 [History Last Taken 1 Week Ago ~01/26/21] azelastine 2 spray NASAL BID 09/23/13 [History Last Taken 1 Week Ago ~01/26/21] fluticasone propion-salmeterol [Advair Diskus] 1 puff INHALATION BID 09/23/13 [History Last Taken 1 Week Ago ~01/26/21] B-complex with vitamin C 1 ea PO DAILY 02/02/21 [History Last Taken 02/02/21] Rhinocort Aqua 2 spray NASAL DAILY PRN PRN 02/02/21 [History Last Taken 1 Week Ago ~01/26/21] cetirizine 10 mg PO DAILY 02/02/21 [History Last Taken 02/02/21] losartan-hydrochlorothiazide 1 tab PO DAILY 02/02/21 [History Last Taken 02/01/21] sertraline 50 mg PO DAILY 02/02/21 [History Last Taken 02/02/21] simvastatin 20 mg PO DAILY 02/02/21 [History Last Taken 02/02/21] turmeric-turmeric root extract 1 cap PO DAILY 02/02/21 [History Last Taken 02/02/21] potassium chloride 20 meq PO BIDCM #14 tab 02/03/21 [Rx Last Taken Unknown] Allergy/AdvReac Type Severity Reaction Status Date / Time mold Allergy upper Verified 02/02/21 14:37 resp. symptoms codeine AdvReac Upset Verified 07/16/21 09:15 Stomach niacin AdvReac flushing Verified 02/02/21 14:37 sodium penothol AdvReac Upset Uncoded 02/02/21 14:37 Stomach Social History Smoking Status: Never smoker ROS Constitutional Constitutional: Reports fatigue and malaise Eyes Eyes: Denies blurry vision or change in vision ENT HEENT: Denies dizziness, dysphagia, loss taste/smell or nasal discharge Cardiovascular Cardiovascular: Reports dyspnea; Denies chest pain Respiratory/Chest Respiratory/Chest: Reports cough and dyspnea Gastrointestinal Gastrointestinal: Denies abdominal pain, diarrhea, nausea or vomiting Genitourinary Genitourinary: Denies difficulty urinating Musculoskeletal Musculoskeletal: Denies arthralgias, back pain or joint pain Integumentary Integumentary: Denies lesions, rash or skin ulcer Neurologic Neurologic: Denies abnormal gait or abnormal speech Psychiatric Psychiatric: Denies anxiety Endocrine Endocrinology: Reports fatigue Hematologic/Lymphatic Hematologic/Lymphatic: Denies easy bleeding or easy bruising Physical Exam Const alert and no apparent distress General Appearance: cooperative and on BiPAP Nutritional Appearance: obese HEENT normocephalic and head/scalp atraumatic Eyes PERRL, EOMs intact bilaterally and conjunctivae normal Neck supple General: trachea midline Resp Effort and Inspection: tachypneic Auscultation: diminished lung sounds; Negative for rales, rhonchi or wheezes Cardio regular rate and regular rhythm GI normal to inspection, nondistended, normoactive bowel sounds Extremity no clubbing, cyanosis or edema Skin no rashes or lesions noted Neuro CN's II-XII intact bilaterally and no focal motor deficits Psych Mood & Affect: anxious Lab / Micro Data Result Diagrams: 07/17/21 03:55 07/17/21 03:55 Labs: Laboratory Results - last 24 hr 07/16/21 09:17: WBC 6.4, RBC 4.62, Hgb 13.3, Hct 38.8 L, MCV 84.0, MCH 28.8, MCHC 34.3, RDW Std Deviation 38.4, RDW Coeff of Olimpia 12.7, Plt Count 143 L, MPV 10.0, Immature Gran % (Auto) 0.600, Neut % (Auto) 84.7 H, Lymph % (Auto) 9.7 L, [place] % (Auto) 4.8, Eos % (Auto) 0.0, Baso % (Auto) 0.2, Absolute Neuts (auto) 5.4, Absolute Lymphs (auto) 0.62 L, Nucleated RBC % 0 07/16/21 09:17: Sodium 134 L, Potassium 3.1 L, Chloride 97 L, Carbon Dioxide 33.0 H, Anion Gap 4 L, BUN 17, Creatinine 0.91, Estim Creat Clear Calc 100.27, Est GFR (MDRD) Af Amer 113, Est GFR (MDRD) Non-Af 93, BUN/Creatinine Ratio 18.6, Glucose 115 H, Calcium 8.4 L, Total Bilirubin 0.60, AST 56 H, ALT 65 H, Alkaline Phosphatase 62, C-React Prot Ext Range 56.40 H, Total Protein 6.7, Albumin 3.2, Globulin 3.5, Albumin/Globulin Ratio 0.9 07/16/21 09:17: Lactic Acid 1.6 07/16/21 09:52: Fibrinogen 427 07/16/21 09:52: D-Dimer Quant (PE/DVT) 0.50 H 07/16/21 16:15: POC Glucose 150 H 07/16/21 22:09: POC Glucose 132 H 07/17/21 03:50: POC Glucose 129 H 07/17/21 03:55: WBC 8.2, RBC 4.59 L, Hgb 13.0, Hct 38.8 L, MCV 84.5, MCH 28.3, MCHC 33.5, RDW Std Deviation 39.9, RDW Coeff of Olimpia 12.9, Plt Count 164, MPV 10.1, Immature Gran % (Auto) 0.500, Neut % (Auto) 79.4 H, Lymph % (Auto) 14.6 L, [place]aines % (Auto) 5.4, Eos % (Auto) 0.0, Baso % (Auto) 0.1, Absolute Neuts (auto) 6.5, Absolute Lymphs (auto) 1.20, Nucleated RBC % 0 07/17/21 03:55: Sodium 136, Potassium 3.2 L, Chloride 96 L, Carbon Dioxide 32.0, Anion Gap 8, BUN 20 H, Creatinine 0.98, Estim Creat Clear Calc 93.11, Est GFR (MDRD) Af Amer 105, Est GFR (MDRD) Non-Af 86, BUN/Creatinine Ratio 20.5 H, Glucose 109 H, Calcium 8.0 L, Total Bilirubin 0.50, AST 66 H, ALT 70 H, Alkaline Phosphatase 56, Total Protein 6.4, Albumin 2.9 L, Globulin 3.5, Albumin/Globulin Ratio 0.8 L, TSH 0.62 Radiology Impression Chest X-Ray 07/16/21 09:53 IMPRESSION: Diffuse bilateral patchy pulmonary infiltrates worse in the left lung. Electronically Signed: Sukhi Mckee MD at 10:46 EDT , Service support , Charges/Coding Procedures Hospitalists Procedures: [id number] [facility] Care 1st Hr
[2021-07-17] MEDS: Potassium Chloride Oral Tablet 20 MEQ 60 MEQ PO (08:39)
[2021-07-17] MEDS: Potassium Chloride Oral Tablet 20 MEQ 40 MEQ PO (08:39)
[2021-07-17] MEDS: Azelastine HCl NASAL.SRY 2 SPRAY NASAL ×2 (08:39→22:28)
[2021-07-17] MEDS: Atorvastatin Calcium 10 MG Tablet 20 MG PO (08:40)
[2021-07-17] MEDS: Losartan Potassium 50 MG Tablet PO (08:40)
[2021-07-17] MEDS: hydroCHLOROthiazide 12.5mg 12.5 MG PO (08:40)
[2021-07-17] MEDS: Enoxaparin 40 MG/0.4 ML Syringe SC ×2 (08:40→22:28)
[2021-07-17] MEDS: dexAMETHasone 4 MG Tablet 6 MG PO (08:40)
[2021-07-17] MEDS: Loratadine 10 MG Tablet PO (08:40)
[2021-07-17] MEDS: Sertraline 50 MG Tablet PO (08:41)
--- NOTE | 2021-07-17 11:52 | PN.HOSP_ITS ---
Subjective Subjective Oxygen requirements have increased significantly in the last 24 hours. Mr. Campbell is now on BiPAP with an FiO2 of 85% and oxygen saturations in the low 90s. His only complaint at this time is that he is hungry. No other issues other than increased oxygen requirement overnight. Objective Data Objective Data Vital Signs: Vital Signs Temp Pulse Resp BP Pulse Ox 98.1 F 71 24 H 143/54 H 99 07/17/21 04:09 07/17/21 07:20 07/17/21 09:00 07/17/21 07:00 07/17/21 11:11 Oxygen Flow Rate (L/min) 15 Oxygen Delivery Method Bi-pap Weight: 118.6 kg Body Mass Index (BMI) 37.5 Intake & Output: Intake and Output for Last 24 Hours 07/15/21 07/16/21 07/17/21 23:59 23:59 23:59 Intake Total 252.25 / 252.25 240 / 240 Output Total 450 / 750 800 / 800 Balance -197.75 / -497.75 -560 / -560 Lab / Micro Data Result Diagrams: 07/17/21 03:55 07/17/21 03:55 Labs: Laboratory Results - last 24 hr 07/16/21 16:15: POC Glucose 150 H 07/16/21 22:09: POC Glucose 132 H 07/17/21 03:50: POC Glucose 129 H 07/17/21 03:55: WBC 8.2, RBC 4.59 L, Hgb 13.0, Hct 38.8 L, MCV 84.5, MCH 28.3, MCHC 33.5, RDW Std Deviation 39.9, RDW Coeff of Olimpia 12.9, Plt Count 164, MPV 10.1, Immature Gran % (Auto) 0.500, Neut % (Auto) 79.4 H, Lymph % (Auto) 14.6 L, [place] % (Auto) 5.4, Eos % (Auto) 0.0, Baso % (Auto) 0.1, Absolute Neuts (auto) 6.5, Absolute Lymphs (auto) 1.20, Nucleated RBC % 0 07/17/21 03:55: Sodium 136, Potassium 3.2 L, Chloride 96 L, Carbon Dioxide 32.0, Anion Gap 8, BUN 20 H, Creatinine 0.98, Estim Creat Clear Calc 93.11, Est GFR (MDRD) Af Amer 105, Est GFR (MDRD) Non-Af 86, BUN/Creatinine Ratio 20.5 H, Glucose 109 H, Calcium 8.0 L, Total Bilirubin 0.50, AST 66 H, ALT 70 H, Alkaline Phosphatase 56, Total Protein 6.4, Albumin 2.9 L, Globulin 3.5, Albumin/Globulin Ratio 0.8 L, TSH 0.62 Physical Exam Const alert, oriented x3 and no apparent distress Constitutional Narrative: Obese white male sitting up in bed, on noninvasive ventilation, appears tachypneic, nontoxic with no acute distress at this time General Appearance: cooperative Exam Limitations: no limitations HEENT normocephalic, head/scalp atraumatic, hearing grossly normal bilaterally, moist oral mucous membranes and oropharynx normal Head and Scalp: normocephalic Neck Neck Narrative: Short thick neck Resp no retractions and no use of accessory muscles Resp Narrative: Diffusely diminished but clear, mild tachypnea Auscultation: Negative for crackles, rales, rhonchi or wheezes Cardio regular rate, regular rhythm, S1 normal heart sound, S2 normal heart sound, no murmurs, no rub, no gallops, no clicks and no JVD GI normal to inspection, nondistended, normoactive bowel sounds, soft to palpation, non-tender and non-distended Extremity normal to inspection, full ROM and no clubbing, cyanosis or edema Peripheral Pulses: Yes pulses 2+ throughout Neuro oriented x3, moves all extremities and no focal motor deficits Sensorium / Orientation: awake and alert Assessment & Plan Assessment/Plan (1) Acute respiratory failure with hypoxia: (2) Obesity: (3) COVID-19: (4) Thrombocytopenia: (5) Transaminitis: (6) Hypokalemia: (7) Hyponatremia: PLAN: Acute hypoxic respiratory failure secondary to COVID-19 pneumonia -High suspicion secondary to comorbidities for further decline with regards to oxygenation -Respiratory status declined overnight and patient is now on noninvasive ventilation with an FiO2 of 85% -Patient is aware that if he continues to tear he or he may require intubation and mechanical ventilation -Transition to airVo as able -Decadron 6 mg day 2 of 10 -Remdesivir day 2 of 5 -Continue Lovenox 40 mg twice daily -Pulmonology consulted Hypokalemia -Repeat oral replacement -Repeat in a.m. Thrombocytopenia -Resolved Transaminitis -Slight trend up -Continue to monitor -Suspect related to acute Covid infection Hyponatremia -Resolved -Likely related to acute Covid infection/HCTZ use -Continue to monitor Obesity -BMI 37.7 -Complicates overall treatment, prognosis, and outcomes -Recommend weight loss HTN/HPL -Continue losartan/hydrochlorothiazide -Continue simvastatin History of asthma -Continue home inhalers DVT prophylaxis -Lovenox 40 mg twice daily CODE STATUS -Full code as per discussion had with the patient the emergency department on admission was updated with regards to patient's increased oxygenation requirements overall plan and potential need for mechanical ventilation at noon on 07/17/20 21 Charges/Coding Visit Charges Inpatient E&M: 64857 Subs Hosp L2
--- NOTE | 2021-07-17 13:29 | CASEMGMT ---
REGI HEATON Face to Face with patient for initial transition planning/care coordination assessment. RN CM introduced self and role at [facility]. Patient sitting in chair, alert and oriented. Patient willing to participate in assessment and is able to answer all questions appropriately. Care providers, pharmacy, and demographics verified. Patient wishes to discharge home, denies need for home health at this time. Patient states he has no further needs or concerns at this time. CM to follow for discharge planning needs that may arise. PCP: Prashant Specialists: none Preferred Pharmacy: [facility] Insurance: [facility] Prescription Benefit: yes Living Will/HPOA: none, patient expressed interest in completing HPOA. SW updated. LNOK: Living Arrangements: Patient lives with in a 2 story home. Patient states he is independent and able to ambulate stairs. Patient states is sick as well and isolating at home. Transportation: self/ DME/HHC: Patient states he has Cpap machine at home through [employer]. If patient requires home oxygen, prefers [facility] for DME. No previous HHC. Patient up independently with therapy. Disposition Plan: Patient to discharge home with family support and follow-up plans in place. Will monitor for need for home oxygen at discharge. Quin MOORE, RN, CM
--- NOTE | 2021-07-17 15:54 | CHAPLAIN ---
Type of Pastoral Visit _x__ Initial Visit ___ Follow-up Visit ___ On-call Visit ___ General Patient Visit ___ Spiritual Assessment ___ Family Conference ___ Bereavement ___ Rapid Response ___ Code Blue _x__ Other (describe below) Pastoral Care Referral From _x__ Patient ___ Family ___ Nurse ___ Physician ___ Painter Decorator ___ Marine Engineering Professor ___ Other (describe below) Sacrament/Intervention _x__ Active listening ___ Anointing ___ Anabaptism ___ Bereavement ___ Communion ___ Rosi exploration ___ ___ Life review _x__ Prayer ___ Reconciliation ___ Sacrament of Sick ___ Supportive presence ___ Wedding ___ Other (describe below) Pastoral Comments patient answers the phone in the isolation room; pt able to talk but also coughs so conversation is brief and this foundry melt supervisor did most of the talking; pt states he is doing some better and that he would like prayer support; pt concerned for his daughter who was to be baptized this Friday;
[2021-07-17 16:31] LABS: Bedside Glucose 136 mg/dL (70-110)
[2021-07-17 16:40] LABS: Bedside Glucose 136 mg/dL (70-110)
[2021-07-17] MEDS: 0.9% Saline Lock 10 ML Syringe IV (22:27)
[2021-07-17] MEDS: Ondansetron 4 MG/2 ML Vial IV (22:28)
[2021-07-17 22:51] LABS: Bedside Glucose 126 mg/dL (70-110)
[2021-07-18] VITALS (36 sets, daily range): BP systolic 84–160; BP diastolic 55–117; PULSE 57–87; RESP 12–38; TEMP -12–38; O2SAT 72–99
[2021-07-18] MEDS: proCHLORPERazine 10 MG/2 ML Vial 5 MG IM (01:18)
[2021-07-18] MEDS: MELATONIN 3 MG TABLET PO (01:19)
[2021-07-18 04:32] LABS: Absolute Lymphocyte Count 1.09 X10^3/uL (0.83-4.51); Absolute Neutrophil Count 6.9 X10^3/uL (2.0-7.7); Basophil# 0.01 X10^3/uL; Basophil% 0.1 % (0-1); Hematocrit 35.8 % (40-54); Hemoglobin 11.7 g/dL (13.0-16.5); Lymphocyte # 1.09 X10^3/ul (0.83-4.51); Lymphocyte % 12.5 % (19-41); Mean Corp Hgb Conc 32.7 g/dL (32-36); Mean Corpuscular Hgb 28.6 pg (27.0-32.0); Mean Corpuscular Volume 87.5 fL (80-94); Mean Platelet Vol. 10.2 fl (6.2-12.0); Monocyte% 6.9 % (0-10); NRBC Flagged by Analyzer 0 % (0-5); Neutrophil # 6.94 X10^3/uL (2.7-7.7); Neutrophil % 79.8 % (47-70); Platelet Count 182 K/mm3 (150-450); RBC Distribution Width SD 41.3 fl (35.1-43.9); Red Blood Count 4.09 M/mm3 (4.6-6.2); White Blood Count 8.7 K/mm3 (4.4-11.0)
[2021-07-18 04:52] LABS: ALB/GLOB Ratio 0.8 RATIO (0.9-2.4); AST(SGOT) 72 U/L (15-37); Alanine Aminotransfer ALT/SGPT 64 U/L (16-61); Albumin, Serum 2.3 g/dL (3.2-5.0); Alkaline Phosphatase 47 U/L (45-117); Anion Gap 2 (5-15); BUN 22 mg/dL (7-18); BUN/Creat Ratio 33.2 RATIO (10-20); Calcium,Total 7.2 mg/dL (8.5-10.1); Chloride 106 mmol/L (98-107); Creatinine, Serum 0.66 mg/dL (0.70-1.30); EST Glomerular Filtration Rate 135 mL/min (>60); Est Glom Filt Rate - Afr Amer 164 mL/min (>60); Estimated Creatinine Clearance 138.26 ml/min; Glucose 108 mg/dL (74-106); Protein, Total 5.3 g/dL (6.4-8.2); Sodium Level 139 mmol/L (136-145)
--- NOTE | 2021-07-18 06:57 | PN.CC_ITS ---
Assessment & Plan Assessment/Plan (1) Acute respiratory failure with hypoxia: (2) COVID-19: PLAN: RECOMMENDATIONS: 1. Proceed with intubation given refractory hypoxemia. 2. Maintain plateau pressures less than 30. 3. Obtain arterial blood gas in 1 hour. 4. Obtain sputum and send for culture. 5. Start propofol and fentanyl for sedation. 6. Continue remdesivir and Decadron as ordered. 7. Continue appropriate ICU prophylaxis. IMPRESSIONS: 1. Acute hypoxemic respiratory failure secondary to COVID-19 pneumonia The patient is an unvaccinated male who presented to the hospital with 1 week of progressive dyspnea in the setting of a positive test for COVID-19. Chest x-ray findings are consistent with COVID-19 pneumonia. The patient has been started on appropriate medical therapy with remdesivir and Decadron. Unfortunately, the patient's respiratory status has continued to decline and he eventually required intubation on the morning of July 18. Given the patient's post intubation chest x-ray findings, he will be started on broad-spectrum antimicrobials as well. Sputum will be obtained and sent for culture. Arterial blood gas will be obtained. The patient will be sedated with propofol and fentanyl. Plan to opti ochoa FiO2 and PEEP in an attempt to maintain oxygen saturations at or above 90%, while maintaining plateau pressures less than 30. Appropriate ICU prophylaxis will be continued. 2. Obesity/questionable history of asthma/hypertension/hyperlipidemia/history of obstructive sleep apnea Complicates care, management, recovery and prognosis. Continue home medications as indicated. TIME: 80 minutes of critical care time, inclusive of procedures, was spent addressing the patient's acute hypoxemic respiratory failure secondary to COVID-19 pneumoni a, review of all data and collaboration with the care team. ([id number]) Subjective Subjective The patient was seen and examined at the bedside this morning. Events from the last 24 hours have been reviewed. The patient is currently afebrile, hemodynamically stable and maintaining appropriate oxygen saturations on AVAPS w ith an FiO2 requirement of 100%. The patient was briefly able to tolerate Airvo heated high flow yesterday but readily desaturated yesterday evening with dinner. At that time, he was placed on continuous noninvasive positive pressure ventilatory support. He is currently documented to be overall net -1.5 L for the hospital admission. The patient remains on remdesivir, Decadron and Lovenox twice daily. Despite noninvasive positive pressure ventilatory support with an FiO2 requirement of 100%, the patient's oxygen saturations remained in the mid to upper 80s. He remained tachypneic as well. I spoke at length with the patient and his this morning via telephone with regards to my concerns and the need to proceed with intubation. All parties were in agreement to move forward with invasive mechanical ventilatory support. Intubation Indication: Respiratory failure Consent was obtained from: Patient The patient was placed in the appropriate sniffing position. Preoxygenated sedation via [id number] was provided for a minimum of 3 minutes. The luis miguel ent had continuous cardiac as well as pulse oximetry monitoring during the procedure. Procedure sedation was provided by the administration of 4 mg of Versed, 20 mg of etomidate and 100 mg of succinylcholine. Direct laryngoscopy was then performed using a number 4 MAC blade, which revealed a grade 3 view. A 8.0 mm endotracheal tube was visualized advancing between the cords to the level of 24 cm at the lip. The stylette was then removed and discarded. Tube placement was confirmed by fogging in the tube along with equal and bilateral breath sounds. Colorimetric change was visualized on the CO2 meter. The cuff was then inflated and the tube secured using a commercially available device. A good pulse oximetry waveform was seen on the monitor throughout the procedure. A portable chest x-ray has been ordered to confirm appropriate placement. The patient tolerated the procedure well. Objective Data Objective Data The patient's most recent lab work, culture data and imaging studies have all been personally reviewed. Surface echocardiogram from January 2021 demonstrated an ejection fraction of 65%. Blood cultures are pending. Vital Signs: Vital Signs Temp Pulse Resp BP Pulse Ox 96.0 F L 71 29 H 122/78 H 86 07/18/21 04:00 07/18/21 06:00 07/18/21 06:00 07/18/21 06:00 07/18/21 06:00 Oxygen Flow Rate (L/min) 60 Oxygen Delivery Method Bi-pap Weight: 115.8 kg Body Mass Index (BMI) 37.5 Intake & Output: Intake and Output for Last 24 Hours 07/16/21 07/17/21 07/18/21 23:59 23:59 23:59 Intake Total 252.25 / 252.25 730 / 730 60 / 60 Output Total 450 / 750 1770 / 1770 375 / 375 Balance -197.75 / -497.75 -1040 / -1040 -315 / -315 Lab / Micro Data Attestation: I reviewed the patient's lab results. Result Diagrams: 07/18/21 04:15 07/18/21 04:15 Labs: Laboratory Results - last 24 hr 07/17/21 12:55: POC Glucose 136 H 07/17/21 16:34: POC Glucose 136 H 07/17/21 22:35: POC Glucose 126 H 07/18/21 04:15: WBC 8.7, RBC 4.09 L, Hgb 11.7 L, Hct 35.8 L, MCV 87.5, MCH 28.6, MCHC 32.7, RDW Std Deviation 41.3, RDW Coeff of Olimpia 13.0, Plt Count 182, MPV 10.2, Immature Gran % (Auto) 0.700, Neut % (Auto) 79.8 H, Lymph % (Auto) 12.5 L, Ellis % (Auto) 6.9, Eos % (Auto) 0.0, Baso % (Auto) 0.1, Absolute Neuts (auto) 6.9, Absolute Lymphs (auto) 1.09, Nucleated RBC % 0 07/18/21 04:15: Sodium 139, Potassium 4.0, Chloride 106, Carbon Dioxide 31.0, Anion Gap 2 L, BUN 22 H, Creatinine 0.66 L, Estim Creat Clear Calc 138.26, Est GFR (MDRD) Af Amer 164, Est GFR (MDRD) Non-Af 135, BUN/Creatinine Ratio 33.2 H, Glucose 108 H, Calcium 7.2 L, Total Bilirubin 0.50, AST 72 H, ALT 64 H, Alkaline Phosphatase 47, Total Protein 5.3 L, Albumin 2.3 L, Globulin 3.0, Albumin/Globulin Ratio 0.8 L Physical Exam Const alert and oriented x3 General Appearance: cooperative, ill appearing and on BiPAP Nutritional Appearance: obese HEENT normocephalic and head/scalp atraumatic Eyes PERRL, EOMs intact bilaterally and conjunctivae normal Neck supple General: trachea midline Resp Effort and Inspection: tachypneic, labored and actively coughing Auscultation: diminished lung sounds; Negative for rales, rhonchi or wheezes Cardio regular rate and regular rhythm GI normal to inspection, nondistended, normoactive bowel sounds Extremity no clubbing, cyanosis or edema Skin no rashes or lesions noted Neuro CN's II-XII intact bilaterally and no focal motor deficits Psych Mood & Affect: anxious Charges/Coding Procedures Hospitalists Procedures: 76755 Critial Care 1st Hr Multi Select Codes Hospitalists' Procedures Procedures: 29787 Critial Care Addl 30 Min
[2021-07-18] MEDS: Albuterol 2.5 MG/3 ML VIAL.NEB. INHALATION ×4 (07:04→19:55)
--- NOTE | 2021-07-18 08:49 | NURSING ---
Dr monae spoke with pt & will intubate , starte levo gtt @ 5mcg bp 84/70, versed 4mg
[2021-07-18] MEDS: Midazolam 2 MG/2 ML Syringe IV (08:55)
[2021-07-18] MEDS: Etomidate 20 MG/10 ML Vial IV (08:57)
[2021-07-18] MEDS: Propofol 10MG/Ml 1,000 MG/100 ML Bottle 6.9 MG CONT INF (09:05)
--- NOTE | 2021-07-18 09:20 | RAD_ITS ---
HISTORY: ETT placement. TECHNIQUE: XR Chest 1 View. EXAM TIME: 2021-07-18 09:09. # of images incl. paperwork: 2. COMPARISON:07/16/2021. FINDINGS: LINES/DEVICES: Endotracheal tube tip approximately 3 cm above the [place]. Nasogastric tube extends to the stomach with the tip excluded from the [id number]. CARDIOMEDIASTINAL BORDERS: Stable. LUNGS: Increase severe bilateral consolidation. PLEURA: Mild right pleural effusion. RAD/Chest 1 View (Portable) IMPRESSION: Satisfactory appearance of endotracheal tube. Increased severe bilateral pneumonia or ARDS. at 0951 Reported and signed by: Aida Elliott MD Electronically Signed: Aida Elliott MD at 9:50 EDT Tel , Service support ,
--- NOTE | 2021-07-18 09:20 | RAD_ITS ---
HISTORY: OGT placement. TECHNIQUE: XR Abdomen 1 View. # of images incl. paperwork: 1. COMPARISON: None. FINDINGS: BOWEL GAS PATTERN: No dilated bowel loops. Orogastric tube tip in the left upper quadrant. FREE AIR: Not assessed on supine view. LUNG BASES: Multifocal pneumonia. RAD/Abdomen Single View (Portable) IMPRESSION: Orogastric tube tip in the region of the stomach. at 0950 Reported and signed by: Aida Elliott MD Electronically Signed: Aida Elliott MD at 9:49 EDT Tel , Service support ,
[2021-07-18] MEDS: 0.9% Saline Lock 10 ML Syringe IV (09:42)
--- NOTE | 2021-07-18 09:57 | CASEMGMT ---
REGI HEATON: Call received from Stas, Sql Programmer with [facility] [employer] ([phone]). [facility] is an out of network/Tier 2 (80% coverage) facility and requests pt to be transferred to a Tier I [facility] (100% coverage) facility. Transfer line [phone]. Update provided on pt's medical condition including need for continuous bipap and now mechanical ventilation. Stas to discuss with his medical record administrator for possible approval for Tier 1 coverage and will contact this RN FLORINA later today with results of this discussion. This RN CM asked Stas about bed availability at [facility] facilities to which he stated there are beds available. Bishop Wilkes RN CM
[2021-07-18 10:11] LABS: Allen Test Positive; Base Excess 6 mmol/L (-2 to +2); Bicarbonate 30.6 mmol/L (22-26); Blood Gas Specimen Type ART; FI02 100; Mode AC; O2 Delivery Device Adult Vent; PEEP 18; PO2 75 mmHG (75-100); RR 14; SITE R Radial; SO2 95 % (95-99); Total Carbon Dioxide 32 mmol/L; Vt 450; pCO2 49.7 mmHg (35-45)
[2021-07-18 11:04] LABS: CPK Total, Creatine Kinase 992 U/L (39-308); Triglycerides 65 mg/dL
--- NOTE | 2021-07-18 11:51 | PHA.PHARE_ITS ---
Consult Pharmacy has been consulted to manage selected antiobiotic: Vancomycin Type of Consult: New start Labs: Sodium 139 mmol/L (136-145) 07/18/21 04:15 Potassium 4.0 mmol/L (3.5-5.1) 07/18/21 04:15 Chloride 106 mmol/L (98-107) 07/18/21 04:15 Carbon Dioxide 31.0 mmol/L (21.0-32.0) 07/18/21 04:15 Anion Gap 2 (5-15) L 07/18/21 04:15 BUN 22 mg/dL (7-18) H 07/18/21 04:15 Creatinine 0.66 mg/dL (0.70-1.30) L 07/18/21 04:15 Est GFR (MDRD) Af Amer 164 mL/min (>60) 07/18/21 04:15 Est GFR (MDRD) Non-Af 135 mL/min (>60) 07/18/21 04:15 BUN/Creatinine Ratio 33.2 RATIO (10-20) H 07/18/21 04:15 Glucose 108 mg/dL (74-106) H 07/18/21 04:15 Microbiology: Microbiology 07/18/21 10:00 Urine Catheter - Ledezma Legionella Antigen - Final 07/18/21 10:00 Urine Catheter - Ledezma Streptococcus pneumoniae Antigen (M - Final Weight used for dosin.8 kg Estimated Creatinine Clearance: >100ML/MIN Goal Trough: 15-20 mcg/mL Pharmacy Plan for Drug Dosing: Give initial load dose of 2000mg IV x1, then continue with 1500mg IV q8h per [facility] dosing protocol. Will check a trough level before the 4th total dose tomorrow morning. Pharmacy Service will continue to monitor and adjust dosing as required. Follow-Up Labs: Trough Vancomycin Labs to be done on [date and time ordered]: 07/19/21 10:30
[2021-07-18 12:36] LABS: Bedside Glucose 132 mg/dL (70-110)
[2021-07-18] MEDS: Propofol 10MG/Ml 1,000 MG/100 ML Bottle 34.7 MG CONT INF ×5 (12:42→19:58)
[2021-07-18 12:50] LABS: M R Staph aureus DNA By PCR Negative (Negative); Probe Check PASS; Specimen Processing Control PASS
--- NOTE | 2021-07-18 12:54 | PN.HOSP_ITS ---
Subjective Subjective Patient remains on noninvasive ventilation with an FiO2 of 100%. Oxygen saturations were in the mid 80s and therefore the patient was intubated this morning. We do have concerns that he may continue to decompensate. I discussed the case with [facility] and they are working on transferring for a bed although they do not believe he will be an ECMO candidate secondary to BMI. Objective Data Objective Data Vital Signs: Vital Signs Temp Pulse Resp BP Pulse Ox 96.0 F L 63 17 105/55 L 94 07/18/21 04:00 07/18/21 11:50 07/18/21 11:25 07/18/21 07:00 07/18/21 11:25 Oxygen Flow Rate (L/min) 60 Oxygen Delivery Method Bi-pap Weight: 115.8 kg Body Mass Index (BMI) 37.5 Intake & Output: Intake and Output for Last 24 Hours 07/16/21 07/17/21 07/18/21 23:59 23:59 23:59 Intake Total 252.25 / 252.25 730 / 730 130.04 / 130.04 Output Total 450 / 750 1770 / 1770 375 / 375 Balance -197.75 / -497.75 -1040 / -1040 -244.96 / -244.96 Lab / Micro Data Result Diagrams: 07/18/21 04:15 07/18/21 04:15 Labs: Laboratory Results - last 24 hr 07/17/21 12:55: POC Glucose 136 H 07/17/21 16:34: POC Glucose 136 H 07/17/21 22:35: POC Glucose 126 H 07/18/21 04:15: WBC 8.7, RBC 4.09 L, Hgb 11.7 L, Hct 35.8 L, MCV 87.5, MCH 28.6, MCHC 32.7, RDW Std Deviation 41.3, RDW Coeff of Olimpia 13.0, Plt Count 182, MPV 10.2, Immature Gran % (Auto) 0.700, Neut % (Auto) 79.8 H, Lymph % (Auto) 12.5 L, [place] % (Auto) 6.9, Eos % (Auto) 0.0, Baso % (Auto) 0.1, Absolute Neuts (auto) 6.9, Absolute Lymphs (auto) 1.09, Nucleated RBC % 0 07/18/21 04:15: Sodium 139, Potassium 4.0, Chloride 106, Carbon Dioxide 31.0, Anion Gap 2 L, BUN 22 H, Creatinine 0.66 L, Estim Creat Clear Calc 138.26, Est GFR (MDRD) Af Amer 164, Est GFR (MDRD) Non-Af 135, BUN/Creatinine Ratio 33.2 H, Glucose 108 H, Calcium 7.2 L, Total Bilirubin 0.50, AST 72 H, ALT 64 H, Alkaline Phosphatase 47, Total Protein 5.3 L, Albumin 2.3 L, Globulin 3.0, Albumin/Globulin Ratio 0.8 L 07/18/21 10:00: B-Natriuretic Peptide 43.0 07/18/21 10:00: MRSA (PCR) Negative 07/18/21 10:00: Total Creatine Kinase 992 H, Triglycerides 65 07/18/21 12:15: POC Glucose 132 H Micro: Microbiology 07/16/21 09:25 Blood Culture (Wb) - Right Hand Blood Culture - Preliminary No growth in 48 hours. 07/16/21 09:17 Blood Culture (Wb) - Anticubital Right Blood Culture - Preliminary No growth in 48 hours. 07/18/21 09:13 Sputum, Induced/Lukens Gram Stain - Final 07/18/21 10:00 Urine Catheter - Ledezma Legionella Antigen - Final 07/18/21 10:00 Urine Catheter - Ledezma Streptococcus pneumoniae Antigen (M - Final ABG Data ABG results: ABG 07/18/21 10:03 Specimen Type ART Sample Site R Radial pH 7.40 Bicarbonate Actual 30.6 H Total CO2 32 Base Excess 6 H O2 Saturation 95 O2 % 100 ABG pCO2 49.7 H ABG pO2 75 Jamal Test Positive Respiration Rate 14 O2 Delivery Device Adult Vent Vent Mode AC Tidal Volume 450 POC PEEP 18 Radiography Diagnostic Testing: Radiology Impression Chest X-Ray 07/18/21 09:20 IMPRESSION: Satisfactory appearance of endotracheal tube. Increased severe bilateral pneumonia or ARDS. at 0951 Reported and signed by: Aida Elliott MD Electronically Signed: Aida Elliott MD at 9:50 EDT Tel , Service support , KUB X-Ray 07/18/21 09:20 IMPRESSION: Orogastric tube tip in the region of the stomach. at 0950 Reported and signed by: Aida Elliott MD Electronically Signed: Aida lEliott MD at 9:49 EDT Tel , Service support , Physical Exam Const alert, oriented x3 and no apparent distress Constitutional Narrative: Alert and oriented prior to intubation, tachypnea with mild respiratory distress General Appearance: cooperative Exam Limitations: no limitations Nutritional Appearance: obese HEENT head/scalp atraumatic and moist oral mucous membranes Head and Scalp: normocephalic Eyes PERRL, EOMs intact bilaterally and conjunctivae normal Neck no lymphadenopathy, supple, no JVD and no carotid bruits Neck Narrative: Short thick neck Resp no retractions and no use of accessory muscles Resp Narrative: Markedly diminished lung sounds bilaterally but no adventitious sounds, mild respiratory distress on noninvasive ventilation Auscultation: Negative for crackles, rales, rhonchi or wheezes Cardio regular rate, regular rhythm, S1 normal heart sound, S2 normal heart sound, no murmurs, no rub, no gallops, no clicks and no JVD GI normal to inspection, nondistended, normoactive bowel sounds, soft to palpation, non-tender and non-distended Extremity no clubbing, cyanosis or edema Peripheral Pulses: Yes pulses 2+ throughout Skin no rashes or lesions noted, no wounds, skin turgor normal, no jaundice, no petechiae and no mottling Neuro oriented x3, CN's II-XII intact bilaterally, moves all extremities and no focal motor deficits Sensorium / Orientation: awake and alert Motor Exam: strength 5/5 throughout Psych affect normal Psych Narrative: Patient appears scared and anxious Assessment & Plan Assessment/Plan (1) Acute respiratory failure with hypoxia: (2) Obesity: (3) COVID-19: (4) Thrombocytopenia: (5) Transaminitis: (6) Hypokalemia: (7) Hyponatremia: PLAN: Acute hypoxic respiratory failure secondary to COVID-19 pneumonia -Patient required intubation this morning -Is on AC with tidal volume of 450 and 18 of PEEP oxygen saturations were 92% after intubation -Post intubation ABG was reviewed and is okay - x-ray shows marked bilateral infiltrates -Procalcitonin is pending -MRSA PCR is negative -Empiric antibiotics were initiated -Paralytics as needed -Consider prone positioning -No availability of tocilizumab -Decadron 6 mg day 3 of 10 -Remdesivir day 3 of 5 -Continue Lovenox 40 mg twice daily -Pulmonology following Hypokalemia -Resolved Thrombocytopenia -Resolved Transaminitis -Slight trend up again today but less than 100 for AST and ALT -Continue to monitor -Suspect related to acute Covid infection Obesity -BMI 37.7 -Complicates overall treatment, prognosis, and outcomes -Recommend weight loss HTN/HPL -Continue losartan/hydrochlorothiazide -Continue simvastatin History of asthma -Continue home inhalers DVT prophylaxis -Lovenox 40 mg twice daily CODE STATUS -Full code as per discussion had with the patient the emergency department on admission was updated with regards to intubation and pending transfer Charges/Coding Visit Charges Inpatient E&M: 12486 Subs Hosp L2
--- NOTE | 2021-07-18 13:07 | CASEMGMT ---
RN CM: This RN CM received a return call from Stas with [facility] CM. Stas states that this patient's policy does include [facility] as an in-network provider and does not require transfer based on insurance benefits. Stas states he is sending over authorization for this stay as an in-network stay. Bishop Wilkes RN CM
--- NOTE | 2021-07-18 13:10 | CPS ---
Plateau pressure is 30, decreased PEEP to 16, Dr Robles is aware.
--- NOTE | 2021-07-18 14:15 | CPS ---
Baldo was called d/t pt desatting into the mid 80's and not coming back up. R.T. got 26 Plateau pressure & increased PEEP to 18, pt sounded rhonchorous so I suctioned him then with the help of a RN, pulled pt up in bed. Sat's slowly but steadily made it back into the 90's.
[2021-07-18] MEDS: Enoxaparin 40 MG/0.4 ML Syringe SC (15:39)
[2021-07-18] MEDS: Potassium Chloride Oral Tablet 20 MEQ 40 MEQ PO (15:40)
[2021-07-18] MEDS: Atorvastatin Calcium 10 MG Tablet 20 MG GT (15:41)
[2021-07-18] MEDS: dexAMETHasone 4 MG Tablet 6 MG GT (15:42)
[2021-07-18] MEDS: Lansoprazole 15 MG Capsule.DR 30 MG GT (15:44)
[2021-07-18] MEDS: Sertraline 50 MG Tablet GT (15:44)
[2021-07-18 16:10] LABS: Bedside Glucose 109 mg/dL (70-110)
[2021-07-18 16:56] LABS: Procalcitonin 0.11 ng/mL (0.00-0.09)
--- NOTE | 2021-07-18 18:03 | NURSING ---
report called to [facility] for transfer to [facility] bed -18, informed of room number, awaiting transport
--- NOTE | 2021-07-18 20:30 | NURSING ---
2014- [facility] team is here at bedside preparing patient with staff for transport. Propofol @50mcg/kg/min and Fentanyl 200mcg/hr. 2029-Patient has left with [facility] team to go to [facility].
[2021-07-18 20:36] LABS: Allen Test Positive; Base Excess 4 mmol/L (-2 to +2); Bicarbonate 30.2 mmol/L (22-26); Blood Gas Specimen Type ART; FI02 100; Mode AC; O2 Delivery Device Adult Vent; PEEP 18; PO2 67 mmHG (75-100); RR 20; SITE L Radial; SO2 91 % (95-99); Total Carbon Dioxide 32 mmol/L; Vt 400; pH 7.33 (7.35-7.45)
--- NOTE | 2021-07-18 20:59 | NURSING ---
2044- Called patient's Patsy and updated her on patient's condition and that he had left with [facility] to go to [facility].
--- NOTE | 2021-07-19 07:22 | DS.PCM_ITS ---
Providers Date of Admission: 07/16/21 Primary Care Physician: Dr. Rodrigo Cerda MD Consultations 07/18/21 06:03 Consult: Teletypewriter Installer / Pulmonary Medicine Routine Consulting Provider: [facility] Reason for Consult: COVID EMERGENT Consult: No MD Notified: Yes Date Notified: 07/18/21 Time Notified: 06:03 Method of Notification: Verbal Reason For Visit: COVID19 PNA Diagnosis Discharge Diagnosis (1) Acute respiratory failure with hypoxia: Status: Acute Code(s): J96.01 - Acute respiratory failure with hypoxia (2) Obesity: Status: Acute Code(s): E66.9 - Obesity, unspecified (3) COVID-19: Status: Acute Code(s): U07.1 - COVID-19 (4) Thrombocytopenia: Status: Acute Code(s): D69.6 - Thrombocytopenia, unspecified (5) Transaminitis: Status: Acute Code(s): R74.01 - Elevation of levels of liver transaminase levels (6) Hypokalemia: Status: Acute Code(s): E87.6 - Hypokalemia (7) Hyponatremia: Status: Acute Code(s): E87.1 - Hypo-osmolality and hyponatremia Medications at Discharge Home Medications albuterol sulfate [Ventolin HFA] 2 puff INHALATION Q4H PRN PRN 09/23/13 azelastine 2 spray NASAL BID 09/23/13 fluticasone propion-salmeterol [Advair Diskus] 1 puff INHALATION BID 09/23/13 B-complex with vitamin C 1 ea PO DAILY 02/02/21 Rhinocort Aqua 2 spray NASAL DAILY PRN PRN 02/02/21 cetirizine 10 mg PO DAILY 02/02/21 losartan-hydrochlorothiazide 1 tab PO DAILY 02/02/21 sertraline 50 mg PO DAILY 02/02/21 simvastatin 20 mg PO DAILY 02/02/21 turmeric-turmeric root extract 1 cap PO DAILY 02/02/21 potassium chloride 20 meq PO BIDCM #14 tab 02/03/21 Hospital Course Procedures Intubation Summary of Care Provided Minutes Spent on Discharge: 25 Hospital Course: KAYODE HUTCHINS, is a 51 M who presented [facility] on 07/16/2021 with a chief complaint of shortness of breath. He reported that he started having some weakness, shortness of breath, mild cough, and nausea that started on Friday evening of last week. He was tested for Covid on Friday and had a positive result. He states his is also ill. He has not been vaccinated. His T-max in the emergency department was 100.4, his blood pressure was stable, he was tachypneic and had an oxygen saturation of 75% on room air and required up titration to 6 L nasal cannula to obtain an oxygen saturation greater than 92%. Decadron was initiated the emergency department. His CBC was fairly unremarkable other than mild thrombocytopenia with a platelet count of 143. His BMP showed mild hyponatremia with a sodium of 134, hypokalemia with potassium of 3.4 and an elevated serum bicarb of 33. His kidney function was normal. He had mildly elevated transaminases with an AST of 56 and ALT of 65. His CRP was elevated a D-dimer was obtained and was 0.50. He was admitted to the ICU for continued care. He unfortunately declined clinically and needed up titration in his oxygen to high flow nasal cannula then air Vo then BiPAP to the point where he was on BiPAP at 100% on the a.m. of 07/18/2021 with worsening oxygenation and saturations in the mid 80s. At that time the decision was made to intubate the patient. His post intubation chest x-ray showed marked bilateral infiltrates consistent with ARDS. Given his rapid decline in the appearance of his chest x-ray there was concern that he would need further support and request for transfer for potential ECMO evaluation was discussed with [facility]. Upon initial review his of data had a stated he would most likely not be a candidate for ECMO but they would be excepting for transfer once a bed became available. They were able to get him a bed at [facility] on the evening of 07/18/2021 and he was discharged in critical condition. Discharge diagnoses: Acute hypoxic respiratory failure ARDS Covid pneumonia Mild transaminitis History of asthma Hypertension Hyperlipidemia Obesity Weight / BMI Weight Weight: 115.8 kg Body Mass Index (BMI) 37.5 ABG / Lab / Microbiology Data Result Diagrams: 07/18/21 04:15 07/18/21 04:15 Laboratory: Laboratory Results - last 24 hr 07/18/21 10:00: B-Natriuretic Peptide 43.0 07/18/21 10:00: MRSA (PCR) Negative 07/18/21 10:00: Total Creatine Kinase 992 H, Triglycerides 65 07/18/21 12:15: POC Glucose 132 H 07/18/21 15:00: Procalcitonin 0.11 H 07/18/21 16:06: POC Glucose 109 Microbiology: Microbiology 07/16/21 09:25 Blood Culture (Wb) - Right Hand Blood Culture - Preliminary No growth in 48 hours. 07/16/21 09:17 Blood Culture (Wb) - Anticubital Right Blood Culture - Preliminary No growth in 48 hours. 07/18/21 09:13 Sputum, Induced/[place] Gram Stain - Final 07/18/21 10:00 Urine Catheter - [place] Legionella Antigen - Final 07/18/21 10:00 Urine Catheter - [place] Streptococcus pneumoniae Antigen (M - Final ABG: ABG 07/18/21 07/18/21 10:03 20:28 Specimen Type ART ART Sample Site R Radial L Radial pH 7.40 7.33 L Bicarbonate Actual 30.6 H 30.2 H Total CO2 32 32 Base Excess 6 H 4 H O2 Saturation 95 91 L O2 % 100 100 ABG pCO2 49.7 H 58.0 H ABG pO2 75 67 L Jamal Test Positive Positive Respiration Rate 14 20 O2 Delivery Device Adult Vent Adult Vent Vent Mode AC AC Tidal Volume 450 400 POC PEEP 18 18 Radiography Diagnostic Testing: Radiology Impression Chest X-Ray 07/18/21 09:20 IMPRESSION: Satisfactory appearance of endotracheal tube. Increased severe bilateral pneumonia or ARDS. at 0951 Reported and signed by: Aida Elliott MD Electronically Signed: Aida Elliott MD at 9:50 EDT Tel , Service support , KUB X-Ray 07/18/21 09:20 IMPRESSION: Orogastric tube tip in the region of the stomach. at 0950 Reported and signed by: Aida Elliott MD Electronically Signed: Aida Elliott MD at 9:49 EDT Tel , Service support , Meaningful Use Info Meaningful Use Diagnoses (Choose all that apply): None applicable Discharge Plan Admission Admit Date/Time: 07/16/21 10:49 Attending Provider: Anat Posada Primary Care Provider: Rodrigo Cerda Consulting Providers: Rafi Houston ; Ari Robles ; Rose Stack TRAFFIC WORKFORCE REPRESENTATIVE Discharge Orders/Prescriptions Prescriptions: No Action fluticasone propion-salmeterol [Advair Diskus] 1 PUFF inhaler 1 puff inhalation BID RF: 0 azelastine 1 SPRAY aerosol,spray 2 spray NASAL BID RF: 0 albuterol sulfate [Ventolin HFA] 1 INHALER inhaler 2 puff inhalation Q4H PRN PRN (Reason: Allergies) RF: 0 cetirizine 10 MG tablet 10 mg PO DAILY RF: 0 simvastatin 20 MG tablet 20 mg PO DAILY RF: 0 losartan-hydrochlorothiazide 1 EACH tablet 1 tab PO DAILY RF: 0 sertraline 50 MG tablet 50 mg PO DAILY RF: 0 B-complex with vitamin C 1 EACH capsule 1 ea PO DAILY RF: 0 turmeric-turmeric root extract 1 EACH capsule 1 cap PO DAILY RF: 0 Rhinocort Aqua 2 spray NASAL DAILY PRN PRN (Reason: Allergies) RF: 0 potassium chloride 20 MEQ tablet 20 meq PO BIDCM Qty: 14 RF: 0 Referrals / Follow Up: Rodrigo Cerda MD [Primary Care Provider] - Disposition Disposition (needs filled in before D/C Order can be placed): [facility]
== END 2021-07-18 20:30 | disposition short-term general hospital (02) | DRG 208 ==
LOC: ED 10:16 → ICU 11:36
PROVIDERS: Internal Medicine Critical Care Medicine; Admitting Provider Internal Medicine; Emergency Provider Emergency Medicine; PCP Internal Medicine; Visit Provider Internal Medicine
DX: U07.1 COVID-19 (principal); J12.82 Pneumonia due to coronavirus disease 2019; J80 Acute respiratory distress syndrome; E87.1 Hypo-osmolality and hyponatremia; E87.6 Hypokalemia; D69.6 Thrombocytopenia, unspecified; R74.01 Elevation of levels of liver transaminase levels; I10 Essential (primary) hypertension; E78.5 Hyperlipidemia, unspecified; J45.909 Unspecified asthma, uncomplicated; G47.33 Obstructive sleep apnea (adult) (pediatric); E66.9 Obesity, unspecified; Z79.899 Other long term (current) drug therapy; Z86.73 Personal history of transient ischemic attack (TIA), and cerebral infarction without residual deficits
CPT/HCPCS: 31500; 31720; 36600; 71045; 74018; 80053; 82550; 82803; 82962; 83605; 83880; 84145; 84443; 84478; 85025; 85379; 85384; 86140; 87040; 87070; 87205; 87449; 87641; 94002; 94003; 94640; 97162; 97166; 97802; 97803; 99251; 99285; J7040; J7050; A4216; G0463; J2405; J3010